=== PATIENT | female | born 1950 | race Caucasian/White ===

== ENCOUNTER 2017-10-08 06:22 | Day surgery (SDC) | payer MEDICARE, SELFPAY ==
[2017-10-01 12:45] VITALS: BP 162/90; PULSE 80; RESP 16; TEMP 36.4; O2SAT 96; BMI 31.7
--- NOTE | 2017-10-01 13:29 | SDCEKG_ITS ---
Test Reason : Blood Pressure : / mmHG Vent. Rate : 081 BPM Atrial Rate : 081 BPM P-R Int : 150 ms QRS Dur : 080 ms QT Int : 430 ms P-R-T Axes : 059 -04 032 degrees QTc Int : 499 ms Normal sinus rhythm Prolonged QT Abnormal ECG Confirmed by ALEXIA AGRAWAL, ALLIE ([id number]), acquisition editor CHRISTIN HWANG ([id number]) on 10/06/2017 3:19:59 PM Referred By: Maryam Avila Confirmed By:ALLIE HALE MD
[2017-10-08] VITALS (9 sets, daily range): BP systolic 122–150; BP diastolic 65–78; PULSE 72–92; RESP 16–18; TEMP 36–36.6; O2SAT 91–98; BMI 31.4
[2017-10-08] MEDS: Cefazolin 2 GM in 0.9% Normal Saline 100 ML IV (08:08)
[2017-10-08] MEDS: Bupivacaine Mpf 0.5% 30 ML VIAL (09:07)
--- NOTE | 2017-10-08 09:53 | PCM.DC.VHY ---
Discharge Activity: Return to Normal Activity May shower in (days): 1 May resume sexual activity in: 6 weeks Call your doctor if your incision/area has: Continuous Slow Oozing, Sudden Increased Bleeding, Increased Pain/ Swelling, Increased Redness, Foul Smelling Discharge Call your doctor if you observe: Fever of 101 or Higher, Inability to urinate, Inability to have a bowel movement, Using more than one pad per hour Allergies/Adverse Reactions: Allergies NSAIDS (Non-Steroidal Anti-Inflamma Adverse Reaction (Verified 10/01/17 12:51) Upset Stomach phenazopyridine HCl [From Pyridium] Adverse Reaction (Verified 10/01/17 12:51) Other MIGRAINES Medications to take at Discharge Estradiol [Estrace] 1 mg PO DAILY 08/23/14 Pseudoephedrine [Sudafed] 60 mg PO Q6H PRN PRN 08/23/14 Amlodipine Besylate [Norvasc] 10 mg PO DAILY 07/06/16 Fluoxetine [Prozac] 40 mg PO DAILY 07/06/16 Albuterol IH (ProAir) [Proair Hfa (SP)Vent Pts] 1 - 2 puff INHALATION Q4H PRN PRN 10/01/17 Cholecalciferol (Vitamin D3) [Vitamin D3] 2,000 unit PO DAILY 10/01/17 Esomeprazole Magnesium [Nexium 24Hr] 20 mg PO DAILY 10/01/17 Fexofenadine/Pseudoephedrine [Leonor-D 24 Hour Tablet] 180 mg PO DAILY 10/01/17 Krill/Om-3/Dha/Epa/Phospho/Ast [Krill Oil 1,000 mg Softgel] 1,000 mg PO DAILY 10/01/17 Primary Care Physician: Bell Carrasco MD [Primary Care Provider] - Please Follow Up With: Maryam Avila MD When: 6 weeks
--- NOTE | 2017-10-08 09:55 | PCM.OPRPT ---
Problem List (1) Cystocele with rectocele Status: Acute (2) Female stress incontinence Status: Acute Report of Operation Date of Procedure: 10/08/17 Pre-Operative Diagnosis: anterior vaginal wall prolapse, posterior vaginal wall prolapse, female stress incontinence Post-Operative Diagnosis: same Surgery/Procedure Performed:: Anterior and posterior colporrhaphy, midurethral sling and cystoscopy comptroller: Melania Magdaleno Type of Anesthesia:: General Special Medications: .5% marcaine Specimen's removed: None Drains: Bales to PACU Estimated Blood Loss (mL): 25 mL Description of Procedure: The patient was taken to the operating room where general anesthesia was initiated. The patient was placed in dorsal lithotomy position and prepped and draped in sterile fashion. A surgical timeout occurred. A bales catheter was placed in the patient's bladder. The vaginal epithelium overlying the anterior vaginal wall was grasped with two Allis clamps, injected with 0.25% Marcaine with epinephrine and a midline incision was made over the herniation of the anterior vaginal wall. The underlying pubocervical fascia was dissected off the overlying vaginal epithelium until the herniation of the pubocervical fascia was completely exposed. Hemostasis was achieved with electrosurgical cautery. The herniation was repaired in the traditional fashion using imbricating horizontal mattress sutures of 2-O PDS on a CT-1 needle. Once the hernation was completely repaired, the redundant vaginal epithelium was excised and the incision was closed with a running, locking 3-O vicryl suture. Excellent hemostasis was noted. The patient was taken to the operating room where general anesthesia was initiated. The patient was placed in dorsal lithotomy position and prepped and draped in sterile fashion. A surgical timeout occurred. Bales catheter was placed in the patient's bladder. The vaginal epithelium overlying the mid-urethra was grasped with two Allis clamps, injected with 0.25% Marcaine with epinephrine and a 1.5 cm midline incision was made over the mid urethra using a 15 blade scalpel. Tunnels were dissected bilaterally to the pubic rami and the Kenneth Desera trocars were passed through the tunnels on the right side, through the space of Retzius and out the skin at at the pubic symphysis. This was repeated on the patient's left side. Cystoscopy was performed and there was no evidence of bladder or urethral injury. The sling was then drawn up through the space of Retzius and out the skin at the pubic symphysis. Tension was adjusted by placing a Wangensteen forceps between the sling and the urethra. Once adequate tension was adjusted, the plastic sheaths were removed. The redundant sling was trimmed at the skin edges and the skin was repaired with Indermil. The vaginal epithelium was repaired with a running 3-0 Vicryl suture. Anesthesia was discontinued. All needle, instrument, and sponge counts were correct x 2. The patient was taken to recovery room in stable condition. A self-retaining retractor was used to retract the labia and vagina for adequate visualization and exposure. The vaginal epithelium overlying the posterior vaginal wall was grasped with two Allis clamps, injected with 0.25% Marcaine with epinephrine and a midline incision was made over the herniation of the posterior vaginal wall. The underlying rectovaginal fascia was dissected off the overlying vaginal epithelium until the herniation of the rectovaginal fascia was completely exposed. Hemostasis was achieved with electrosurgical cautery. With placement of a rectal finger, the herniation was repaired in the traditional fashion using imbricating horizontal mattress sutures of 2-O PDS on a CT-1 needle. Once the hernation was completely repaired, the redundant vaginal epithelium was excised and the incision was closed with a running, locking 3-O vicryl suture. Excellent hemostasis was noted. The vagina was packed with Kerlex gauze soaked in estrogen cream. Anesthesia was discontinued. All needle, instrument, and sponge counts were correct x 2. The patient was taken to recovery room in stable condition draining clear urine from her bales catheter. Grafts/Implants Used: Kenneth Desera sling - Complications None - Admit VTE Documentation VTE Present on Admission: Yes VTE Mechan Device Prophylaxis: SCD's VTE Pharm Prophylaxis ordered?: No Reason prophylaxis not ordered:: Treatment Not Indicated
--- NOTE | 2017-10-08 10:00 | OP.PCM_ITS ---
Problem List (1) Cystocele with rectocele Status: Acute (2) Female stress incontinence Status: Acute Report of Operation Date of Procedure: 10/08/17 Pre-Operative Diagnosis: anterior vaginal wall prolapse, posterior vaginal wall prolapse, female stress incontinence Post-Operative Diagnosis: same Surgery/Procedure Performed:: Anterior and posterior colporrhaphy, midurethral sling and cystoscopy nursing manager: Melania Magdaleno Type of Anesthesia:: General Special Medications: .5% marcaine Specimen's removed: None Drains: Bales to PACU Estimated Blood Loss (mL): 25 mL Description of Procedure: The patient was taken to the operating room where general anesthesia was initiated. The patient was placed in dorsal lithotomy position and prepped and draped in sterile fashion. A surgical timeout occurred. A bales catheter was placed in the patient's bladder. The vaginal epithelium overlying the anterior vaginal wall was grasped with two Allis clamps, injected with 0.25% Marcaine with epinephrine and a midline incision was made over the herniation of the anterior vaginal wall. The underlying pubocervical fascia was dissected off the overlying vaginal epithelium until the herniation of the pubocervical fascia was completely exposed. Hemostasis was achieved with electrosurgical cautery. The herniation was repaired in the traditional fashion using imbricating horizontal mattress sutures of 2-O PDS on a CT-1 needle. Once the hernation was completely repaired , the redundant vaginal epithelium was excised and the incision was closed with a running, locking 3-O vicryl suture. Excellent hemostasis was noted. The patient was taken to the operating room where general anesthesia was initiated. The patient was placed in dorsal lithotomy position and prepped and draped in sterile fashion. A surgical timeout occurred. Bales catheter was placed in the patient's bladder. The vaginal epithelium overlying the mid- urethra was grasped with two Allis clamps, injected with 0.25% Marcaine with epinephrine and a 1.5 cm midline incision was made over the mid urethra using a 15 blade scalpel. Tunnels were dissected bilaterally to the pubic rami and the Kenneth Desera trocars were passed through the tunnels on the right side, through the space of Retzius and out the skin at at the pubic symphysis. This was repeated on the patient's left side. Cystoscopy was performed and there was no evidence of bladder or urethral injury. The sling was then drawn up through the space of Retzius and out the skin at the pubic symphysis. Tension was adjusted by placing a Wangensteen forceps between the sling and the urethra. Once adequate tension was adjusted, the plastic sheaths were removed. The redundant sling was trimmed at the skin edges and the skin was repaired with Indermil. The vaginal epithelium was repaired with a running 3-0 Vicryl suture. Anesthesia was discontinued. All needle, instrument, and sponge counts were correct x 2. The patient was taken to recovery room in stable condition. A self-retaining retractor was used to retract the labia and vagina for adequate visualization and exposure. The vaginal epithelium overlying the posterior vaginal wall was grasped with two Allis clamps, injected with 0.25% Marcaine with epinephrine and a midline incision was made over the herniation of the posterior vaginal wall. The underlying rectovaginal fascia was dissected off the overlying vaginal epithelium until the herniation of the rectovaginal fascia was completely exposed. Hemostasis was achieved with electrosurgical cautery. With placement of a rectal finger, the herniation was repaired in the traditional fashion using imbricating horizontal mattress sutures of 2-O PDS on a CT-1 needle. Once the hernation was completely repaired , the redundant vaginal epithelium was excised and the incision was closed with a running, locking 3-O vicryl suture. Excellent hemostasis was noted. The vagina was packed with Kerlex gauze soaked in estrogen cream. Anesthesia was discontinued. All needle, instrument, and sponge counts were correct x 2. The patient was taken to recovery room in stable condition draining clear urine from her bales catheter. Grafts/Implants Used: Kenneth Desera sling - Complications None - Admit VTE Documentation VTE Present on Admission: Yes VTE Mechan Device Prophylaxis: SCD's VTE Pharm Prophylaxis ordered?: No Reason prophylaxis not ordered:: Treatment Not Indicated
[2017-10-08] MEDS: Acetaminophen 500 MG Tablet 1000 MG PO (11:34)
[2017-10-08] MEDS: oxyCODONE 5 MG Tablet PO (11:35)
--- NOTE | 2017-10-08 12:51 | SUR.PHASEII ---
Addendum entered by Alberta Guthrie 10/08/17 13:46: bales cath inserted without difficulty- emptied 500cc- pt aware to see dr wright and call office to make appointment Original Note: 1240 PT UP TO BATHROOM AFTER 250ML NS INSTILLED INTO BLADDER VIA CATHETER. CATHETER THEN DC'D. PT UNABLE TO VOID. WILL ATTEMPT AGAIN IN 30 MIN.
== END 2017-10-08 14:15 | disposition home or self-care (01) ==
LOC: SDC 06:22 → AC 06:23
PROVIDERS: Family Provider Internal Medicine; PCP Internal Medicine; Visit Provider Obstetrics & Gynecology
PROC: (CPT 57260; principal; 2017-10-08 07:45)
DX: N81.10 Cystocele, unspecified (principal); N81.6 Rectocele; N39.3 Stress incontinence (female) (male); I10 Essential (primary) hypertension; M19.90 Unspecified osteoarthritis, unspecified site; J45.909 Unspecified asthma, uncomplicated; K21.9 Gastro-esophageal reflux disease without esophagitis; F32.9 Major depressive disorder, single episode, unspecified; Z72.89 Other problems related to lifestyle; Z79.899 Other long term (current) drug therapy
CPT/HCPCS: 51992; 57260; 93005; J7120; C1771; J2405

== ENCOUNTER → 2017-10-22 12:16 | Outpatient (CLI) | payer MEDICARE, SELFPAY ==
--- NOTE | 2017-10-21 | BRBX_PTH ---
PATIENT: SAMMY KNAPP LOC: [facility] U#:[id number] AGE/SX: 75/F ROOM: RE10/22/[address]: Dr. Tylor Soares MD : 1950 BED: DIS: SPEC #: [id number] RECD: 10/22/17 12:04 STATUS: SHELDON GARAYHanane #: [id number] KARAN: 10/21/17 00:[address]: Tylor Soares DEPT: SURGICAL PATHOLOGY RECD BY: Tylor Dan ENTERED: 10/22/17 13:47 SP TYPE: BREAST BX OTHR DR: Dr. Bell Carrasco MD Tissues: Right breast, NOS Procedures: Surgery Specimen Level IV HEADER OPERATION: Ultrasound-guided right breast biopsy PRE-OP DIAGNOSIS: Abnormal mammogram TISSUE SUBMITTED: Right breast biopsy MICROSCOPIC DIAGNOSIS Right breast, ultrasound-guided core biopsy: Fibrocystic changes and intraductal hyperplasia without atypia. Negative for malignancy. See comment. SJ:abhay 10/25/17 COMMENT Correlation with clinical, radiologic findings and appropriate follow up are necessary. MICROSCOPIC DESCRIPTION Slides are reviewed. GROSS DESCRIPTION Received in fixative is one container labeled with the patient's name and designated right breast. The specimen consists of two elongated fragments of white-yellow soft tissue. Each core has an average length of 1 cm and a maximal diameter of 0.1 cm. The specimen is totally submitted in one cassette. / AM:abhay 10/22/17 TC:5 CPT: 41806
--- NOTE | 2017-10-21 | ASPS_PTH ---
PATIENT: SAMMY KNAPP LOC: [facility] U#:[id number] AGE/SX: 75/F ROOM: RE10/22/[address]: Dr. Tylor Soares MD : 1950 BED: DIS: SPEC #: [id number] RECD: 10/22/17 12:04 STATUS: SHELDON NANNETTE #: [id number] KARAN: 10/21/17 00:[address]: Tylor Soares DEPT: CYTOLOGY RECD BY: Tylor Dan ENTERED: 10/22/17 13:47 SP TYPE: ASPIRATION OTHR DR: Dr. Bell Carrasco MD Tissues: Right breast, NOS Procedures: Pap Stain (control) Special Stain Group II Cytology Other HEADER OPERATION: Ultrasound-guided right breast biopsy PRE-OP DIAGNOSIS: Abnormal mammogram TISSUE SUBMITTED: Right breast aspiration (2 slides) DIAGNOSIS CYTOLOGY Right breast, ultrasound-guided FNA (smears): Negative for malignant cells. SJ:abhay 10/25/17 COMMENT Correlation with clinical, radiologic findings and appropriate follow up are necessary. Case has been reviewed in consultation with Dr. Stovall who concurs with the above diagnosis. IDC:AM CYTOLOGY STUDY Slides are reviewed. The specimen is paucicellular and consists of a few clusters of benign ductal cells. CYTOLOGY GROSS Received are two smears labeled with the patient's name and designated per the requisition as right breast. Submitted for staining. 10/22/17 TC:5 CPT: 08923
== END ==
PROVIDERS: Family Provider Internal Medicine; PCP Internal Medicine; Visit Provider Surgery
DX: R92.8 Other abnormal and inconclusive findings on diagnostic imaging of breast (principal)
CPT/HCPCS: 88161; 88305; 88313

== ENCOUNTER → 2017-11-15 10:30 | Outpatient (CLI) | payer MEDICARE, SELFPAY ==
--- NOTE | 2017-11-15 11:30 | BRBX_PTH ---
PATIENT: SAMMY KNAPP LOC: [facility] U#:[id number] AGE/SX: 75/F ROOM: RE11/15/[address]: Dr. Tylor Soares MD : 1950 BED: DIS: SPEC #: [id number] RECD: 11/15/17 12:11 STATUS: SHELDON NANNETTE #: [id number] KARAN: 11/15/17 11:[address]: Tylor Soares DEPT: SURGICAL PATHOLOGY RECD BY: Tylor Dan ENTERED: 11/15/17 12:23 SP TYPE: BREAST BX OTHR DR: Dr. Bell Carrasco MD Tissues: Right breast, NOS Procedures: Surgery Specimen Level IV HEADER OPERATION: Right breast stereotactic needle core biopsy PRE-OP DIAGNOSIS: Microcalcifications TISSUE SUBMITTED: Right breast FIXATION TIME: 8 hours MICROSCOPIC DIAGNOSIS Right breast, microcalcifications, stereotactic needle core biopsy: Fibrocystic changes, adenosis and intraductal hyperplasia with atypia. Focal microcalcifications. Negative for malignancy. DARIO:abhay 11/16/17 COMMENT Correlation with clinical, radiologic findings and appropriate follow up are necessary. Please make reference to previous specimen ([id number]) right breast, ultrasound-guided core biopsy with diagnosis of fibrocystic changes and intraductal hyperplasia without atypia. Case has been reviewed in consultation with Dr. Stovall who concurs with the above diagnosis. IDC:AM MICROSCOPIC DESCRIPTION Slides are reviewed. GROSS DESCRIPTION Received in fixative is one container labeled with the patient's name and designated right breast. The specimen consists of multiple elongated fragments of love-yellow fibroadipose tissue that in aggregate measure 6 x 3 x 0.3 cm. The entire specimen is submitted in three cassettes. / DARIO:abhay 11/15/17 TC:5 CPT: 37088
--- NOTE | 2017-11-15 11:56 | OP.PCM_ITS ---
Report of Operation Date of Procedure: 11/15/17 Pre-Operative Diagnosis: right breast microcalcifications Post-Operative Diagnosis: right breast microcalcifications - successful stereotactic biopsy Surgery/Procedure Performed:: right stereotactic vaccuum assisted core needle biopsy, specimen radiograph, gel marker placement Specimen's removed: right breast tissue Description of Procedure: The patient was brought to the stereotactic suite and informed of the plan course of events. The right breast was positioned in the CC approach on the Flores stereotactic table. Mammographic image demonstrated the area of abnormality to be located in the center of the radiograph. Stereotactic images were then obtained which demonstrated good positioning of the abnormality for biopsy with good stroke marie parameters. The breast was cleaned with Betadine area did one percent lidocaine was used to anesthetize the skin and a small stab incision made. An 8-gauge mammotome needle was placed into the pre-fire position. Stereotactic images demonstrated good positioning around the planned biopsy site. Local anesthetic injected deeply in the breast. The needle was deployed. Post deployment images demonstrated good positioning of the planned biopsy site. Multiple vacuum-assisted samples were obtained and around-the- clock fashion. Specimen radiograph demonstrated micro-calcifications in the sample. A gel marker clip was deployed. Post biopsy images demonstrated good position of the clip relative the biopsy cavity. The breast was removed from compression. Steri-Strips and a dressing applied. Post procedure mammogram images were obtained.
== END ==
PROVIDERS: Family Provider Internal Medicine; PCP Internal Medicine; Visit Provider Surgery
DX: N60.91 Unspecified benign mammary dysplasia of right breast (principal); R92.1 Mammographic calcification found on diagnostic imaging of breast; I10 Essential (primary) hypertension; F32.9 Major depressive disorder, single episode, unspecified; J45.909 Unspecified asthma, uncomplicated; M19.90 Unspecified osteoarthritis, unspecified site; Z79.899 Other long term (current) drug therapy
CPT/HCPCS: 19081; 88305; J7050; A4648

== ENCOUNTER 2017-12-27 09:29 | Day surgery (SDC) | payer MEDICARE, SELFPAY ==
[2017-12-27 09:47] VITALS: BP 152/77; PULSE 73; RESP 16; TEMP 36.6; O2SAT 96; BMI 31.9
--- NOTE | 2017-12-27 10:46 | BI_ITS ---
SURGICAL BREAST SPECIMEN RADIOGRAPH CLINICAL: Document presence of tissue clip marker in biopsy specimen. FINDINGS: Specimen shows presence of tissue clip marker. Electronically Signed: Sandro Hayes MD at 15:25 EDT Tel [phone], Service support , BI/Breast Biopsy Specimen
--- NOTE | 2017-12-27 11:05 | BRBX_PTH ---
PATIENT: SAMMY KNAPP LOC: [facility] [place] U#:[id number] AGE/SX: 67/F ROOM: RE12/27/[address]: Dr. Tylor Soares MD : 1950 BED: DIS: 12/27/2017 SPEC #: [id number] RECD: 12/27/17 15:01 STATUS: SHELDON NANNETTE #: [id number] KARAN: 12/27/17 11:[address]: Tylor Soares DEPT: SURGICAL PATHOLOGY RECD BY: Nicole Schulte ENTERED: 12/28/17 10:51 SP TYPE: BREAST BX OTHR DR: Dr. Bell Carrasco MD Tissues: Right breast, NOS Procedures: Surgery Specimen Level V HEADER OPERATION: Right breast lumpectomy, stereotactic needle localization PRE-OP DIAGNOSIS: Atypical ductal hyperplasia right breast TISSUE SUBMITTED: Right breast lumpectomy, needle localization, wire ? cranial, single suture ? superficial, double suture - medial MICROSCOPIC DIAGNOSIS Right breast, needle localization lumpectomy: Fibrocystic changes, adenosis and intraductal hyperplasia with focal atypia. Negative for malignancy. Focal microcalcifications. SJ:abhay 12/30/17 COMMENT Please make reference to previous specimen ([id number]) right breast, microcalcifications with diagnosis of fibrocystic changes, adenosis and intraductal hyperplasia with atypia. MICROSCOPIC DESCRIPTION Slides are reviewed. GROSS DESCRIPTION Received fresh for intraoperative consultation labeled with the patient's name is a specimen designated right breast. The specimen consists of a piece of fibroadipose tissue with needle localization measuring 8 x 7 x 3.5 cm. A piece of skin is noted superiorly and measures 2.2 x 1 cm. The specimen is oriented as follows: wire - cranial, single suture ? superficial and double suture ? medial. The specimen is inked as follows: anterior ? yellow, posterior ? black, superior ? blue, inferior ? green, medial ? red and lateral ? orange. Serial sections reveal a biopsy cavity with an indurated area. The biopsy cavity measures 1 cm in greatest dimension and the indurated area including biopsy cavity measures 2.5 x 1 x 1 cm. Sections of the rest of the specimen reveal love-yellow adipose cut surfaces mixed with fibrous area. The specimen gross is reviewed along with the surgeon, Dr. Soares, in person. The biopsy cavity is 0.6 cm away from the closest posterior margin. Clean In Places Operator sections are submitted in 12 cassettes as follows: 1 ? perpendicular medial and lateral margins, 2 ? perpendicular inferior margin and skin adjacent superior margin, 3 ? perpendicular anterior and posterior margins, 4-9 ? biopsy cavity with surrounding indurated area, 1012 ? medical sales representative sections away from the biopsy cavity. Sections will be submitted after additional fixation. / SJ:abhay 12/28/17 TC:5 CPT: 83335, 82156
[2017-12-27] MEDS: Cefazolin 2 GM in 0.9% Normal Saline 100 ML IV (14:15)
[2017-12-27] MEDS: Bupivacaine Mpf 0.5% 30 ML VIAL (14:35)
--- NOTE | 2017-12-27 15:17 | PCM.DCBBX ---
Discharge Diet: No Restrictions Discharge Activity: Return to Normal Activity May shower in (days): 3 Remove Dressing in (days):: 3 - Leave Dermabond in place. Allergies/Adverse Reactions: Allergies cyclobenzaprine [From Flexeril] Adverse Reaction (Verified 12/24/17 09:02) Other EYE MUSCLE PAIN NSAIDS (Non-Steroidal Anti-Inflamma Adverse Reaction (Verified 12/24/17 09:01) Upset Stomach phenazopyridine HCl [From Pyridium] Adverse Reaction (Verified 12/24/17 09:01) Other MIGRAINES Medications to take at Discharge RX: Estradiol [Estrace] 1 mg PO DAILY 08/23/14 RX: Pseudoephedrine [Sudafed] 60 mg PO Q6H PRN PRN 08/23/14 RX: Amlodipine Besylate [Norvasc] 10 mg PO DAILY 07/06/16 RX: Fluoxetine [Prozac] 40 mg PO DAILY 07/06/16 RX: Albuterol IH (ProAir) [Proair Hfa] 1 - 2 puff INHALATION Q4H PRN PRN 10/01/17 RX: Cholecalciferol (Vitamin D3) [Vitamin D3] 2,000 unit PO DAILY 10/01/17 RX: Esomeprazole Magnesium [Nexium 24Hr] 20 mg PO DAILY 10/01/17 RX: Krill/Om-3/Dha/Epa/Phospho/Ast [Krill Oil 1,000 mg Softgel] 1,000 mg PO DAILY 10/01/17 RX: Fexofenadine HCl [Leonor Allergy] 180 mg PO DAILY 12/24/17 Oxycodone HCl/Acetaminophen [Percocet 5/325] 1 tab PO Q6H PRN PRN 7 Days #10 tab 12/27/17 The following prescriptions were given: Oxycodone HCl/Acetaminophen [Percocet 5/325] 1 tab PO Q6H PRN PRN 7 Days #10 tab PRN Reason: Pain Primary Care Physician: Bell Carrasco MD [Primary Care Provider] - Test Results: Test results from this visit will be discussed in further detail at your follow-up appointment, if applicable. Please Follow Up With: Tylor Soares MD - [phone] When: Please call for an appointment to be seen in one week.
--- NOTE | 2017-12-27 15:20 | OP.PCM_ITS ---
Report of Operation Date of Procedure: 12/27/17 Pre-Operative Diagnosis: right breast atypical ductal hyperplasia Post-Operative Diagnosis: right breast atypical ductal hyperplasia - successful needle loc biopsy Surgery/Procedure Performed:: right stereotactic guided needle localization lumpectomy. Description of Surgical Findings:: closest posterior margin - 6mm Type of Anesthesia:: General Anesthesiologist: Ravi Esteves - ASA2 Specimen's removed: right breast mass Drains: none Estimated Blood Loss (mL): <10 Fluids Replaced: 800 Description of Procedure: The patient was brought to the stereotactic suite. Her right breast was positioned in the CC approach in the [place] stereotactic table. Mammogram image demonstrated the clip to be nicely centered. Stereotactic images were obtained. Planned placement of the wire was marked and an additional 15 mm of depth added to the prescribed depth. The breast was then cleaned with Betadine. Local anesthetic was injected in the breast and a 15 Kopan's wire was inserted to the prescribed depth. Stereotactic images demonstrated good positioning of the wire. The wire was deployed as an needle was withdrawn. Stereotactic images demonstrated good positioning of the wire. The breast was marked compression the wire cut to length and taped. CC and MLO views were then obtained. The patient was then brought to the operative suite. Sign was performed verifying patient, site, position, SCIP antibiotic prophylaxis-2 g of Ancef and DVT prophylaxis with SCDs. Following an LMA anesthesia, 10 cc of a 50-50 mixture of lymph is here and normal saline was injected and sapeys plexus and the breast massaged. Ultrasound was then used to evaluate the abnormality and the limits of the mass and planned resection were marked on the skin using ultrasound guidance. Following this, the patient?s right breast, the patient?s right/left breast was then prepped and draped in the usual fashion. Timeout was performed verifying patient, site, position. The wire entered the breast at the cc position. An elliptical incision was made and dissection carried down to subcutaneous breast tissue and then flared out such that a good margin would be obtained in all axes. When the specimen was removed. The wire came from the cranial site. A solitary suture was placed at the superficial cranial site j. A double tail suture was placed along the medial aspect of the specimen. The specimen was oriented on a radiographic plate and sent for specimen radiograph. While we?re awaiting specimen radiograph, the cavity was irrigated with sterile water and aspirated. There was noted to be good hemostasis. 4 medium clips were placed at the deep cavity margins and 4 small clips at the superficial cavity margins oriented the cavity for future radiation treatment. Subcutaneous breast tissue closed with interrupted 3-0 Vicryl suture. Skin was closed with a running 4-0 Biosyn subcuticular suture. Specimen radiograph demonstrated good position of the clip relative to the biopsy site. The specimen was then brought to the pathology department. I oriented the specimen with the pathologist. Gross margins were examined and felt to be at least 6mm. Given this, Dermabond was applied to the skin the patient was awakened and brought to recovery in stable condition. - Admit VTE Documentation VTE Present on Admission: No VTE Mechan Device Prophylaxis: SCD's
[2017-12-27 15:25] VITALS: BP 148/82; BP 152/77; PULSE 93; RESP 18; TEMP 36.4; O2SAT 93
[2017-12-27 15:30] VITALS: BP 151/83; BP 152/77; PULSE 86; RESP 18; O2SAT 92
[2017-12-27 15:45] VITALS: BP 147/92; BP 152/77; PULSE 82; RESP 18; TEMP 36.5; O2SAT 96
[2017-12-27 16:21] VITALS: BP 152/77
== END 2017-12-27 16:37 | disposition home or self-care (01) ==
LOC: SDC 09:30 → AC 09:35
PROVIDERS: Family Provider Internal Medicine; PCP Internal Medicine; Visit Provider Surgery
PROC: (CPT 19120; principal; 2017-12-27 10:50)
DX: N60.91 Unspecified benign mammary dysplasia of right breast (principal); N60.21 Fibroadenosis of right breast; I10 Essential (primary) hypertension; F32.9 Major depressive disorder, single episode, unspecified; J45.909 Unspecified asthma, uncomplicated; M19.90 Unspecified osteoarthritis, unspecified site; K21.9 Gastro-esophageal reflux disease without esophagitis; Z79.899 Other long term (current) drug therapy
CPT/HCPCS: 00400; 19301; 19281; 76098; 88305; 88307; J7120; J2405

== ENCOUNTER 2019-02-09 08:49 | Emergency (ER) | payer MEDICARE, SELFPAY ==
[2019-02-09 08:50] VITALS: BP 164/88; PULSE 89; RESP 16; TEMP 36.2; O2SAT 97; BMI 31.6
--- NOTE | 2019-02-09 09:04 | CT_ITS ---
STUDY: CT BRAIN WITHOUT CONTRAST REASON FOR EXAM: Female, 68 years old. Headaches. Right shoulder stiffness. RADIATION DOSAGE (If Supplied By Facility): CTDIvol = ( 44.99 ) mGy, DLP = ( 812.98 ) mGycm TECHNIQUE: Transaxial CT imaging of the brain was performed without administration of intravenous contrast material. Individualized dose optimization techniques were used for this CT. COMPARISON: No relevant priors. FINDINGS: Normal soft tissue structures. Normal calvarium. There is prominence of the CSF spaces along the anterior aspect of the frontal lobes bilaterally. Normal white matter tracts of the cerebral hemispheres. Normal basal ganglia and thalami. Normal brainstem. Normal cerebellum. There is no intracranial hemorrhage. There are no findings of an acute ischemic infarction. Partial opacification of the maxillary sinuses bilaterally. CT/Brain/Head without Contrast IMPRESSION: Prominence of the CSF spaces along the anterior aspect of the frontal lobes bilaterally. Bilateral maxillary sinusitis. Electronically Signed: Sandro Hayes, at 10:10 EDT , Service support ,
--- NOTE | 2019-02-09 09:05 | CT_ITS ---
STUDY: CT CERVICAL SPINE WITHOUT CONTRAST REASON FOR EXAM: Female, 68 years old. Headaches. Right shoulder stiffness. RADIATION DOSAGE (If Supplied By Facility): CTDIvol = ( 21.80 ) mGy, DLP = ( 439.68 ) mGycm TECHNIQUE: High resolution transaxial imaging was performed without contrast material. Sagittal and coronal images were reconstructed. Individualized dose optimization techniques were used for this CT. COMPARISON: None FINDINGS: Normal craniovertebral junction. Normal anterior atlantoaxial articulation. Normal odontoid process. There is straightening of the normal cervical lordosis. Normal vertebral bodies and posterior osseous elements. C2-3: Normal endplates. Normal disc height and morphology. Normal central canal and intervertebral neuroforamina. C3-4: Normal endplates. Normal disc height and morphology. Normal central canal and intervertebral neuroforamina. C4-5: Normal endplates. Normal disc height and morphology. Normal central canal and intervertebral neuroforamina. C5-6: Normal endplates. Normal disc height and morphology. Normal central canal and intervertebral neuroforamina. C6-7: Normal endplates. Normal disc height and morphology. Normal central canal and intervertebral neuroforamina. C7-T1: Normal endplates. Normal disc height and morphology. Normal central canal and intervertebral neuroforamina. Normal visualized soft tissue structures. CT/Spine Cervical without Contras IMPRESSION: Normal unenhanced CT examination of the cervical spine. Electronically Signed: Sandro Hayes, at 10:10 EDT , Service support ,
--- NOTE | 2019-02-09 09:09 | ED.DCSUM_ITS ---
History of Present Illness Chief Complaint: Headache Informant: Patient Onset: Yesterday Context: Gradual Onset Timing: Continuous Current Severity: Severe Maximum Severity: Severe Worsened by: Head movement Relieved by: Nothing Narrative: Patient is a 68-year-old female presenting with right-sided neck pain and associ ated headache. Patient states she woke up yesterday with a crick in her neck. The neck pain worsened throughout the day. Patient has not taken any medications for the pain. She notes the pain is worse when she tries to move her head. Last night patient developed a headache that woke her from sleep. She states is in the back of her head. She has a history of migraines but states this feels different than her normal migraines. She denies any associated nausea or vomiting, weakness or altered sensation. She denies any change in her vision, fever or rash. She called her nurse on-call line which told her to come to the emergency room for further evaluation. Patient denies any falls or trauma. She denies any other complaints at this time. Past Medical History - Allergies and Home Meds Allergies/Adverse Reactions: Allergies cyclobenzaprine [From Flexeril] Adverse Reaction (Verified 02/09/19 08:50) Other EYE MUSCLE PAIN NSAIDS (Non-Steroidal Anti-Inflamma Adverse Reaction (Verified 02/09/19 08:50) Upset Stomach phenazopyridine HCl [From Pyridium] Adverse Reaction (Verified 02/09/19 08:50) Other MIGRAINES Primary Care Physician: Bell Carrasco MD [Primary Care Provider] - Past Medical History: - - Asthma, migraines, hypertension Surgical History: noncontributory Smoking Status: Never smoker Review of Systems All systems negative except as indicated Musculoskeletal: Reports: Neck pain - Right sided Neurological: Reports: Headache Physical Exam Vital Signs/Narrative: Vital Signs Temp Pulse Resp BP Pulse Ox 02/09/19 08:50 97.1 F L 89 16 164/88 H 97 Inital Vital Signs reviewed: Yes General: Well nourished, Well developed, No Acute Distress Head: Normocephalic, Atraumatic Eyes: Perrl, EOMI ENT: Moist mucous membranes, No rhinorrhea Neck: Supple, - - No midline tenderness, significant right paraspinal tenderness to palpation and muscle spasm appreciated, no nuchal rigidity Cardiovascular: Regular rate, Regular rhythm, No murmurs Respiratory: No distress, CTA bilaterally, Chest nontender Abdomen: Soft, Nontender, Nondistended Back: Nontender, Normal Inspection Extremities: Nontender, No edema Skin: Normal color, No rash Neurological: Alert, Oriented x3, Cranial nerves II-XII grossly intact, Normal Strength, Normal Sensation Psychological: Normal affect, Normal Mood Diagnostic/Tx/Re-eval Clinical Impression(s) from Imaging Studies Brain CT 02/09/19 09:04 IMPRESSION: Prominence of the CSF spaces along the anterior aspect of the frontal lobes bilaterally. Bilateral maxillary sinusitis. Electronically Signed: Sandro Abigail, at 10:10 EDT , Service support , Cervical Spine CT 02/09/19 09:05 IMPRESSION: Normal unenhanced CT examination of the cervical spine. Electronically Signed: Sandro Abigail, at 10:10 EDT , Service support , - Medical Decision Making Patient is evaluated for neck pain and headache. CT of the head and neck is obtained as patient headache woke her from sleep which is abnormal for her. She has normal neurologic exam. CT of the brain does show slightly enlarged ventricles which she was informed of she can follow-up outpatient with her PCP. I suspect she has a muscle spasm which is causing her symptoms at this time. She is treated with IV Toradol and p.o. Valium in the ER. She has significant improvement of her symptoms. She will be discharged home on a course of Valium. Patient does not have any meningeal signs. Patient is counseled on signs and symptoms requiring return to the emergency room. Patient verbalizes agreement and understand this plan. Patient discharged home in stable and improved condition. ED Disposition - Plan for ED Patient: Disposition: Home or Assisted Living Diagnosis: Muscle spasms of neck, Tension headache Instructions: HEADACHE, Tension, NECK SPASM, No Trauma Prescriptions: Diazepam [Valium] 5 mg PO TID PRN #15 tab PRN Reason: Muscle Spasm Prescription Printed Referrals: Bell Carrasco MD [Primary Care Provider] - Additional Instructions: Take Tylenol as needed for pain. Use heat to the area for pain. Return to emergency room if you have worsening symptoms. Follow-up with your primary care doctor.
[2019-02-09] MEDS: Ketorolac 15 MG/ML Vial IV (09:32)
[2019-02-09] MEDS: diazePAM 5 MG Tablet PO (09:39)
[2019-02-09 11:20] VITALS: BP 157/89; PULSE 71; RESP 16; O2SAT 97
== END 2019-02-09 12:10 | disposition home or self-care (01) ==
PROVIDERS: Emergency Provider Emergency Medicine; Family Provider Internal Medicine; PCP Internal Medicine
DX: G44.209 Tension-type headache, unspecified, not intractable (principal); M62.838 Other muscle spasm; I10 Essential (primary) hypertension; J45.909 Unspecified asthma, uncomplicated; Z79.899 Other long term (current) drug therapy
CPT/HCPCS: 70450; 72125; 96374; 99284; A4216

== ENCOUNTER → 2019-10-24 09:51 | Outpatient (CLI) | payer MEDICARE, SELFPAY | PROVIDERS: PCP Internal Medicine | DX: Z20.828 Contact with and (suspected) exposure to other viral communicable diseases (principal) | CPT/HCPCS: 87635; G2023; U0003 ==

== ENCOUNTER 2019-12-30 11:01 | Emergency (ER) | payer MEDICARE, SELFPAY ==
[2019-12-30 11:02] VITALS: BP 153/91; PULSE 79; RESP 16; TEMP 36.3; O2SAT 98; BMI 32.4
--- NOTE | 2019-12-30 11:09 | CT_ITS ---
STUDY: CT ABDOMEN AND PELVIS WITHOUT CONTRAST REASON FOR EXAM: Female, 69 years old. Epigastric pain with new diagnosis of diabetes. Prior tubal ligation and hysterectomy. RADIATION DOSAGE (If Supplied By Facility): CTDIvol = ( 10.97 ) mGy, DLP = ( 542.58 ) mGycm TECHNIQUE: Transaxial images were obtained from the dome of the diaphragm to the symphysis pubis without oral contrast, and without intravenous contrast. Sagittal and coronal images were reconstructed. Individualized dose optimization techniques were used for this CT. COMPARISON: None. FINDINGS: The visualized lung bases are unremarkable. The visualized portions of the heart are within normal limits. Normal liver. Normal gallbladder and extrahepatic biliary system. Normal spleen. Pancreas: Mild peripancreatic edema around the pancreatic head and extending to the body and tail of pancreas due to pancreatitis. Normal bilateral adrenal glands. Normal right kidney. Normal left kidney. Normal visualized stomach. Normal small intestine. Normal colon. The appendix is not visualized. Normal abdominal aorta. Normal inferior vena cava. Normal retroperitoneum. Normal urinary bladder. Postsurgical absence of the uterus. Normal abdominal wall. Pronounced disc space height narrowing with endplate sclerosis at L2-L3 and L5-S1 disc space levels. Moderately pronounced L3-L4 disc space height narrowing with degenerative vacuum phenomenon. No acute osseous abnormality. CT/Abdomen/Pelvis without Cont IMPRESSION: 1. Mild acute pancreatitis. 2. No other suspicious acute abnormality in the abdomen and pelvis. 3. Pronounced degenerative disc space height narrowing with endplate sclerosis at L2-L3 and L5-S1 disc space levels. 4. Mildly pronounced L3-L4 degenerative disc space height narrowing with degenerative vacuum phenomenon. Electronically Signed: Thanh Humphrey MD at 12:00 EDT , Service support ,
--- NOTE | 2019-12-30 11:18 | EKG12_ITS ---
Test Reason : Blood Pressure : / mmHG Vent. Rate : 076 BPM Atrial Rate : 076 BPM P-R Int : 154 ms QRS Dur : 080 ms QT Int : 428 ms P-R-T Axes : 070 -07 037 degrees QTc Int : 481 ms Normal sinus rhythm Low voltage QRS Borderline ECG Confirmed by RAMON AGRAWAL, ALBAN ([id number]), technical writer and editor ALEXANDR OWUSU ([id number]) on 01/03/2020 11:32:18 AM Referred By: DARIO Confirmed By:ALBAN NAVARRO MD
--- NOTE | 2019-12-30 11:19 | ED.DCSUM_ITS ---
History of Present Illness Chief Complaint: Abd Pain Informant: Patient Onset: Days Maximum Severity: Mild Narrative: Patient complains of a bilateral subcostal pain and epigastric discomfort for the last few days. The epigastric discomfort intensified today, she is had no fever no cough no nausea or vomiting normal bowel bladder habits able to eat and drink, newly diagnosed diabetic was started on metformin about a month ago and she believes the metformin is causing her to have stomach cramps. She spoke with her providers who over the phone today who could not see her instructed to come to the hospital. She indicates her blood sugars running about 200 range, her A1c is about 5-7, her bowel bladder habits again are normal no coronavirus exposures she takes her hand and the drip she draws it to the bilateral subcostal margins into the epigastric flank discomfort. She has no history of LA PE DVT she has no chest pain she was able to eat today despite the abdominal cramps Past Medical History - Allergies and Home Meds Allergies/Adverse Reactions: Allergies cyclobenzaprine [From Flexeril] Adverse Reaction (Verified 12/30/19 11:02) Other EYE MUSCLE PAIN NSAIDS (Non-Steroidal Anti-Inflamma Adverse Reaction (Verified 12/30/19 11:02) Upset Stomach phenazopyridine HCl [From Pyridium] Adverse Reaction (Verified 12/30/19 11:02) Other MIGRAINES Primary Care Physician: Bell Carrasco MD [Primary Care Provider] - Past Medical History: - - Gastritis and diabetes Surgical History: noncontributory Smoking Status: Never smoker Review of Systems General: Denies: Chills, Fever, Sweats Eyes: Denies: Visual changes - bilaterally, Diplopia ENT: Denies: Rhinorrhea, Sore throat Cardiovascular: Denies: Chest pain, Palpitations Respiratory: Denies: Dyspnea, Cough, Dyspnea on exertion Gastrointestinal: Reports: Abdominal pain. Denies: Nausea, Vomiting, Diarrhea, Melena, Hematochezia Genitourinary: Denies: Dysuria, Hematuria, Frequency Musculoskeletal: Denies: Back pain, Extremity Pain Skin: Denies: Rash, Wounds Neurological: Denies: Headache, Weakness, Numbness Physical Exam Vital Signs/Narrative: Vital Signs Temp Pulse Resp BP Pulse Ox 12/30/19 11:02 97.4 F L 79 16 153/91 H 98 General: Well nourished, Well developed, No Acute Distress Head: Normocephalic, Atraumatic Eyes: Perrl, EOMI ENT: Moist mucous membranes, No rhinorrhea Neck: Supple, Nontender Cardiovascular: Regular rate, Regular rhythm, No murmurs Respiratory: No distress, CTA bilaterally, Chest nontender Abdomen: Soft, Nontender, Nondistended, Normal bowel sounds Back: Nontender, Normal Inspection Extremities: Nontender, No edema Skin: Normal color, No rash Neurological: Alert, Oriented x3, Cranial nerves II-XII grossly intact, Normal Strength, Normal Sensation Psychological: Normal affect, Normal Mood Diagnostic/Tx/Re-eval - Medical Decision Making Patient's physical exam shows a subjective sense of discomfort in the epigastric area and subcostal areas, her BMI is about 33, she has no rebound guarding organomegaly she is eating and drinking bowel bladder habits been normal she is convinced all of the above is related to her metformin use I explained to her given all the above screening labs fluids management CT Patient's ED screening labs show an elevated lipase otherwise generally unremarkable see those reports the urine is pending, the CT abdomen pelvis shows signs of pancreatitis nothing acute see all those reports please On reevaluation she is resting comfortably in the bed remained stable no acute changes discussed all the above with her discussed admission for further management of all the above discussed complications from pancreatitis however she does not wish to be admitted she decayed she has pets in her home no one can care for them and she adamantly declines admission she will stay on a bland diet she will be discharged on Zofran a few [place] as a rescue medicine she will follow-up with outpatient providers and return for change in symptoms we will also hold her metformin and monitor her blood sugars and inform her outpatient providers of all the above understands the need for urgent outpatient management Did speak with the physicians on-call for Dr. Luna Bullard, who was made aware of all the above affect patient declined discharged and was asked to follow-up with the office Home stable declined admission Impression final acute pancreatitis ED Disposition - Plan for ED Patient: Diagnosis: Pancreatitis, acute Instructions: ED Pancreatitis Prescriptions: Hydrocodone Bitart/Apap 5-325 [[place] 5MG-325MG] 1 tab PO Q4H PRN PRN 2 Days #10 tab PRN Reason: Pain Prescription Printed Ondansetron [Zofran Odt] 4 mg PO Q8H PRN PRN #10 tab PRN Reason: Nausea Prescription Printed Referrals: Bell Carrasco MD [Primary Care Provider] -
[2019-12-30] MEDS: 0.9% Normal Saline 1,000 ML 125 ML IV (11:25)
[2019-12-30] MEDS: Ondansetron 4 MG/2 ML Vial IV (11:25)
[2019-12-30] MEDS: morphine 8 MG/ML Syringe IV (11:26)
[2019-12-30 11:34] LABS: Absolute Lymphocyte Count 1.89 X10^3/uL (0.83-4.51); Absolute Neutrophil Count 6.5 X10^3/uL (2.0-7.7); Basophil# 0.04 X10^3/uL; Basophil% 0.4 % (0-1); Eosinophils% 1.1 % (0-5); Hematocrit 38.4 % (37-47); Hemoglobin 12.9 g/dL (12.0-15.0); Lymphocyte # 1.89 X10^3/ul (4.0); Lymphocyte % 20.5 % (19-41); Mean Corp Hgb Conc 33.6 g/dL (32-36); Mean Corpuscular Hgb 31.3 pg (27.0-32.0); Mean Corpuscular Volume 93.2 fL (81-99); Mean Platelet Vol. 9.2 fl (6.2-12.0); Monocyte# 0.65 X10^3/uL; NRBC Flagged by Analyzer 0 % (0-5); Neutrophil # 6.51 X10^3/uL (2.7-7.7); Neutrophil % 70.7 % (47-70); Platelet Count 317 K/mm3 (150-450); RBC Distribution Width CV 13.9 % (11.6-14.6); RBC Distribution Width SD 47.8 fl (35.1-43.9); Red Blood Count 4.12 M/mm3 (4.2-5.4); White Blood Count 9.2 K/mm3 (4.4-11.0)
[2019-12-30 12:07] LABS: ALB/GLOB Ratio 0.9 RATIO (0.9-2.4); AST(SGOT) 15 U/L (15-37); Alanine Aminotransfer ALT/SGPT 29 U/L (13-56); Albumin, Serum 3.2 g/dL (3.2-5.0); Alkaline Phosphatase 71 U/L (45-117); Anion Gap 7 (5-15); BUN 14 mg/dL (7-18); BUN/Creat Ratio 20.8 RATIO (10-20); Calcium,Total 8.8 mg/dL (8.5-10.1); Chloride 105 mmol/L (98-107); Creatinine, Serum 0.67 mg/dL (0.55-1.02); EST Glomerular Filtration Rate 92 mL/min (>60); Est Glom Filt Rate - Afr Amer 112 mL/min (>60); Globulin 3.5 g/dL (2.2-4.2); Glucose 151 mg/dL (74-106); Lipase 4798 U/L (73-393); Potassium 3.8 mmol/L (3.5-5.1); Protein, Total 6.7 g/dL (6.4-8.2); Sodium Level 138 mmol/L (136-145)
[2019-12-30 12:12] LABS: Bacteria 0 SEEN /hpf (None Seen); Mucous, Urine 0 SEEN /hpf (<or=2+); Red Blood Cells-Urine 0 SEEN /hpf (0-5); White Blood Cells 0 SEEN /hpf (0-5)
[2019-12-30 12:28] LABS: Color, Urine Yellow (Yellow); Glucose, Dipstick Normal (Normal); Ketone-Dipstick Negative (Negative); Leukocyte Esterase-Dipstick Negative /ul (Negative); Nitrite-Dipstick Negative (Negative); Occult Blood-Urine Negative /ul (Negative); Protein-Dipstick Negative (Negative); Urine Bilirubin Dipstick Negative (Negative); Urine Clarity Clear (Clear); Urine Urobilinogen Normal (Normal)
[2019-12-30 12:51] LABS: Squamous Epithelial Cells - UA 0-5 SEEN /hpf (5-10)
[2019-12-30 13:04] VITALS: BP 145/85; PULSE 71; RESP 18; O2SAT 98
== END 2019-12-30 13:15 | disposition home or self-care (01) ==
LOC: ED 11:55
PROVIDERS: Emergency Provider Emergency Medicine; PCP Internal Medicine
DX: K85.90 Acute pancreatitis without necrosis or infection, unspecified (principal); E11.9 Type 2 diabetes mellitus without complications; Z79.899 Other long term (current) drug therapy; Z87.19 Personal history of other diseases of the digestive system
CPT/HCPCS: 74176; 80053; 81001; 83690; 84484; 85025; 93005; 96361; 96374; 96375; 99283; J7030; A4216; J2405

== ENCOUNTER 2020-06-17 09:37 | Outpatient (RCR) | payer MEDICARE, SELFPAY | END 2020-06-17 23:59 | LOC: IMMUN 09:37 | PROVIDERS: PCP Internal Medicine; Visit Provider Family Medicine | DX: Z23 Encounter for immunization (principal) | CPT/HCPCS: 0011A; 0012A ==

== ENCOUNTER 2021-01-29 14:16 | Emergency (ER) | payer MEDICARE, SELFPAY ==
[2021-01-29 14:19] VITALS: BP 193/110; PULSE 90; RESP 17; TEMP 37.1; O2SAT 95; BMI 33.7
--- NOTE | 2021-01-29 14:46 | CT_ITS ---
STUDY: CTA HEAD AND NECK WITH CONTRAST REASON FOR EXAM: Female, 70 years old. Vertigo RADIATION DOSAGE (If Supplied By Facility): CTDIvol = ( 30.69 ) mGy, DLP = ( 1515.97 ) mGycm TECHNIQUE: CT angiography was performed with a multi-detector CT scanner. Data acquisition was obtained from the skull base through the vertex following intravenous administration of IV 100mL Isovue-370. MIP images were reconstructed from the axial data set. Post-processing of the angiographic images was performed, with multiplanar reformation and 3D reconstruction. Individualized dose optimization techniques were used for this CT. COMPARISON: No relevant priors. FINDINGS: Normal bilateral petrous carotid arteries. Normal right cavernous carotid artery with a normal supraclinoid bifurcation. Normal left cavernous carotid artery with a normal supraclinoid bifurcation. Normal right A1 segments of the anterior cerebral artery. Normal left A1 segments of the anterior cerebral artery. Normal intact anterior communicating artery (ACOM). Normal bilateral A2 segments of the anterior cerebral arteries. Normal right M1 and M2 segments of the middle cerebral arteries, with a normal M1 bifurcation. Normal left M1 and M2 segments of the middle cerebral arteries, with a normal M1 bifurcation. There is a persistent origin of the right posterior cerebral artery with absence of the posterior communicating artery (PCOM). There is a persistent origin of the left posterior cerebral artery with absence of the posterior communicating artery (PCOM). Normal bilateral vertebral arteries. Normal basilar artery with a normal basilar bifurcation. The visualized bilateral superior cerebellar (SCA) arteries are normal. Normal bilateral P1, P2 and visualized P3 segments of the posterior cerebral arteries. There is no demonstrated aneurysm of the [place] of [place]. Mild degree of cerebral atrophy. Stable prominence of the CSF spaces overlying the anterior aspect of the frontal lobes bilaterally. This is unchanged as compared to prior study dated 02/09/2019. AORTIC ARCH: There is atherosclerotic calcific plaque formation of the aortic arch and great vessels arising from the aortic arch, without a hemodynamically significant stenosis. There is a normal origin of the brachiocephalic, left common carotid, and left subclavian arteries. RIGHT CAROTID ARTERIES: Normal right common carotid artery (CCA). Normal right common carotid bulb. Normal origin of the right internal carotid (ICA) artery without a hemodynamically significant stenosis. Normal visualized cervical portion of the right internal carotid artery. Normal origin of the right external carotid artery (ECA). LEFT CAROTID ARTERIES: Normal left common carotid artery (CCA). Normal left common carotid bulb. Normal origin of the left internal carotid (ICA) artery without a hemodynamically significant stenosis. Normal visualized cervical portion of the left internal carotid artery. Normal origin of the left external carotid artery (ECA). VERTEBRAL ARTERIES: There is enhancement within the bilateral vertebral arteries with a small right vertebral artery, and a dominant left vertebral artery. CT/CTA Head AND Neck W/ Contrast IMPRESSION: Cerebral atrophy. Small right vertebral artery. Electronically Signed: Sandro Hayes MD at 15:50 EDT , Service support ,
--- NOTE | 2021-01-29 14:47 | EKG12_ITS ---
Test Reason : DIZZINESS Blood Pressure : / mmHG Vent. Rate : 073 BPM Atrial Rate : 073 BPM P-R Int : 150 ms QRS Dur : 078 ms QT Int : 430 ms P-R-T Axes : 056 -09 035 degrees QTc Int : 473 ms Normal sinus rhythm with sinus arrhythmia Normal ECG Confirmed by RAMON AGRAWAL, ALBAN ([id number]), publishing editor ALEXANDR OWUSU ([id number]) on 02/04/2021 6:34:53 AM Referred By: Confirmed By:ALBAN NAVARRO MD
[2021-01-29 15:02] LABS: Absolute Neutrophil Count 2.8 X10^3/uL (2.0-7.7); Basophil# 0.05 X10^3/uL; Basophil% 0.9 % (0-1); Eosinophils% 1.8 % (0-5); Hematocrit 40.9 % (37-47); Lymphocyte % 37.4 % (19-41); Mean Corp Hgb Conc 34.2 g/dL (32-36); Mean Corpuscular Hgb 31.9 pg (27.0-32.0); Mean Corpuscular Volume 93.2 fL (81-99); Monocyte# 0.52 X10^3/uL; Monocyte% 9.3 % (0-10); NRBC Flagged by Analyzer 0 % (0-5); Neutrophil # 2.82 X10^3/uL (2.7-7.7); Neutrophil % 50.1 % (47-70); Platelet Count 329 K/mm3 (150-450); RBC Distribution Width CV 13.1 % (11.6-14.6); Red Blood Count 4.39 M/mm3 (4.2-5.4); White Blood Count 5.6 K/mm3 (4.4-11.0)
[2021-01-29 15:13] LABS: Anion Gap 8 (5-15); BUN 14 mg/dL (7-18); BUN/Creat Ratio 21.7 RATIO (10-20); Chloride 103 mmol/L (98-107); Creatinine, Serum 0.65 mg/dL (0.55-1.02); EST Glomerular Filtration Rate 96 mL/min (>60); Est Glom Filt Rate - Afr Amer 116 mL/min (>60); Glucose 109 mg/dL (74-106); Potassium 4.1 mmol/L (3.5-5.1); Sodium Level 136 mmol/L (136-145)
[2021-01-29 15:55] VITALS: BP 175/85; PULSE 75
[2021-01-29] MEDS: amLODIPine 5 MG Tablet PO (16:17)
[2021-01-29] MEDS: Meclizine HCl 25 MG Tablet PO (16:17)
[2021-01-29 16:48] VITALS: BP 164/91; PULSE 69
--- NOTE | 2021-01-29 17:11 | EX.ED.DYSGE1 ---
HPI History of Present Illness Chief Complaint: Dizziness Informant: patient Onset/Context/Timing Onset: Yesterday Current Severity: Mild Maximum Severity: Moderate Narrative Narrative: Patient presents secondary to dizziness and mild frontal headache. She states symptoms started 11 AM yesterday morning when she was at work. She did have leaving work early. She has felt somewhat nauseated. Symptoms do seem to be worse when she turns her head. No head trauma. No recent URI symptoms. She has noted that her blood pressure has been elevated the last 2 days as well. [facility] Medical History Hypertension Home Medications estradiol [Estrace] 1 mg PO DAILY 08/23/14 [History Last Taken Unknown] pseudoephedrine HCl [Sudogest] 60 mg PO Q6H PRN PRN 08/23/14 [History Last Taken Unknown] amlodipine [Norvasc] 5 mg PO BID 07/06/16 [History Last Taken 12/27/17 07:30] fluoxetine 10 mg PO BID 07/06/16 [History Last Taken Unknown] albuterol sulfate [ProAir HFA] 1 - 2 puff INHALATION Q4H PRN PRN 10/01/17 [History Last Taken Unknown] cholecalciferol (vitamin D3) [Vitamin D3] 2,000 unit PO DAILY 10/01/17 [History Last Taken Unknown] fexofenadine [Leonor Allergy] 180 mg PO DAILY 12/24/17 [History Last Taken Unknown] bupropion HCl 300 mg PO DAILY 01/29/21 [History Last Taken Unknown] meclizine [Antivert] 50 mg PO BID PRN #10 tab 01/29/21 [Rx Last Taken Unknown] Allergy/AdvReac Type Severity Reaction Status Date / Time cyclobenzaprine AdvReac Other Verified 01/29/21 14:34 [From Flexeril] NSAIDS (Non-Steroidal AdvReac Upset Verified 01/29/21 14:34 Anti-Inflamma Stomach phenazopyridine HCl AdvReac Other Verified 01/29/21 14:34 [From Pyridium] certain BP medications AdvReac cause sob, Uncoded 01/29/21 14:34 cough Social History Smoking Status: Never smoker ROS ROS ED Constitutional Constitutional ED: Denies chills or fever(s) Eyes Eyes: Denies change in vision ENT ENT ED: Denies sore throat Cardiovascular Cardiovascular: Denies chest pain Respiratory/Chest Respiratory/Chest: Denies cough or dyspnea Gastrointestinal Gastrointestinal: Reports nausea; Denies abdominal pain, diarrhea or vomiting Genitourinary Genitourinary ED: Denies dysuria Musculoskeletal Musculoskeletal: Denies back pain Integumentary Denies rash Neurologic Neurologic: Reports headache(s); Denies paresthesias or weakness Psychiatric Psychiatric: Denies anxiety or depression Allergic/Immunologic Allergic/Immunologic ED: Denies urticaria EXAM Physical Exam Const Vital Signs: 01/29/21 14:19 01/29/21 14:32 01/29/21 15:55 Temperature 98.8 F Temperature Source Oral Pulse Rate 90 75 Respiratory Rate 17 Respiratory Effort Normal Respiratory Pattern Normal Blood Pressure 193/110 H 175/85 H Blood Pressure Mean 137 115 Pulse Ox 95 Oxygen Delivery Method Room Air 01/29/21 16:48 Temperature Temperature Source Pulse Rate 69 Respiratory Rate Respiratory Effort Respiratory Pattern Blood Pressure 164/91 H Blood Pressure Mean 115 Pulse Ox Oxygen Delivery Method Positive well nourished and well developed General Appearance ED: well developed HEENT Reports normocephalic and head/scalp atraumatic Eyes PERRL and EOMs intact bilaterally Neck supple Chest Wall inspection of chest normal and palpation of chest normal Resp normal respiratory effort and clear to auscultation bilaterally Cardio regular rate and regular rhythm GI normal to inspection, nondistended, normoactive bowel sounds and non-tender Palpation: soft Back/Spine no CVA tenderness Extremity normal to inspection Neuro oriented x3 and no sensory deficits noted Neuro Narrative: No neurologic deficits. [id number] testing normal. Sensorium / Orientation: alert Motor Exam: strength 5/5 throughout Psych mental status grossly normal Skin no rashes or lesions noted MDM MDM MDM Narrative Medical decision making narrative: Blood work, EKG, CTA head and neck obtained. Lab Data Attestation: I reviewed the patient's lab results. Labs: Laboratory Results - last 24 hr 01/29/21 01/29/21 14:45 14:45 WBC 5.6 RBC 4.39 Hgb 14.0 Hct 40.9 MCV 93.2 MCH 31.9 MCHC 34.2 RDW Std Deviation 45.0 H RDW Coeff of Johann 13.1 Plt Count 329 MPV 9.0 Immature Gran % (Auto) 0.500 Neut % (Auto) 50.1 Lymph % (Auto) 37.4 [place] % (Auto) 9.3 Eos % (Auto) 1.8 Baso % (Auto) 0.9 Absolute Neuts (auto) 2.8 Absolute Lymphs (auto) 2.10 Nucleated RBC % 0 Sodium 136 Potassium 4.1 Chloride 103 Carbon Dioxide 25.0 Anion Gap 8 BUN 14 Creatinine 0.65 Estim Creat Clear Calc 49.00 Est GFR (MDRD) Af Amer 116 Est GFR (MDRD) Non-Af 96 BUN/Creatinine Ratio 21.7 H Glucose 109 H Calcium 9.0 Radiography Diagnostic Testing: Clinical Impression(s) from Imaging Studies Head/Neck CTA 01/29/21 14:46 IMPRESSION: Cerebral atrophy. Small right vertebral artery. Electronically Signed: Sandro Hayes MD at 15:50 EDT , Service support , EKG Initial EKG: Attestation: I personally reviewed and interpreted this EKG as follows: Interpretation: Sinus Rhythm (Sinus at 73 with no acute ischemia.) Treatment and Re-Evaluation Comments:: Patient's lab work is reviewed and largely unremarkable. EKG is sinus with no acute ischemia. CTA head and neck largely unremarkable. On repeat evaluation patient has been able to admit to the restroom and back with minimal difficulty. She was given a dose of Antivert and a half a dose of her Norvasc. Repeat blood pressures in the 160s systolic. She does state that symptoms seem to be worse with rotation of her head and I do believe this is likely peripheral vertigo. Return instructions are provided. Discharge Plan Triage Chief Complaint: Dizziness ED Provider: Kirti Julio Dx/Rx/DC Orders Clinical Impression: Vertigo Instructions: ED BPV Vertigo Prescriptions: New Antivert 50 mg tablet 50 mg PO BID PRN (Reason: dizziness) Qty: 10 RF: 0 No Action estradiol [Estrace] 0.5 MG tablet 1 mg PO DAILY RF: 0 pseudoephedrine HCl [Sudogest] 60 MG tablet 60 mg PO Q6H PRN PRN (Reason: Congestion) RF: 0 amlodipine [Norvasc] 10 MG tablet 5 mg PO BID RF: 0 fluoxetine 20 MG capsule 10 mg PO BID RF: 0 cholecalciferol (vitamin D3) [Vitamin D3] 2,000 UNIT capsule 2,000 unit PO DAILY RF: 0 albuterol sulfate [ProAir HFA] 1 PUFF inhaler 1 - 2 puff inhalation Q4H PRN PRN (Reason: Asthma) RF: 0 fexofenadine [Lenoor Allergy] 180 MG tablet 180 mg PO DAILY RF: 0 bupropion HCl 300 mg tablet extended release 24 hr 300 mg PO DAILY RF: 0 Primary Care Provider: Bell Carrasco Referrals: Bell Carrasco MD [Primary Care Provider] - 3-5 Days if not improving Disposition Disposition: Home, Self Care
[2021-01-29 17:21] VITALS: BP 167/95; PULSE 72; RESP 16; O2SAT 97
== END 2021-01-29 17:22 | disposition home or self-care (01) ==
PROVIDERS: Emergency Provider Emergency Medicine; PCP Internal Medicine
DX: R42 Dizziness and giddiness (principal); R51.9 Headache, unspecified; R11.0 Nausea; I10 Essential (primary) hypertension; Z79.899 Other long term (current) drug therapy
CPT/HCPCS: 70496; 70498; 80048; 85025; 93005; 99285; Q9967; A4216

== ENCOUNTER 2021-10-26 08:15 | Inpatient (IN) | payer MEDICARE, SELFPAY ==
[2021-10-26] VITALS (29 sets, daily range): BP systolic 87–182; BP diastolic 50–94; PULSE 49–94; RESP 12–18; TEMP 35.8–36.9; O2SAT 87–98; BMI 34.0
--- NOTE | 2021-10-26 08:39 | EKG12_ITS ---
Test Reason : Blood Pressure : / mmHG Vent. Rate : 075 BPM Atrial Rate : 075 BPM P-R Int : 162 ms QRS Dur : 092 ms QT Int : 438 ms P-R-T Axes : 066 -35 030 degrees QTc Int : 489 ms Normal sinus rhythm Left axis deviation Nonspecific ST abnormality Prolonged QT Abnormal ECG Confirmed by RAMON AGRAWAL, ALBAN ([id number]), acquisitions editor ALEXANDR OWUSU ([id number]) on 10/28/2021 8:50:04 AM Referred By: Confirmed By:ALBAN NAVARRO MD
--- NOTE | 2021-10-26 08:39 | RAD_ITS ---
STUDY: X-RAY CHEST REASON FOR EXAM: Female, 71 years old. chest pain TECHNIQUE: Single AP portable view of the chest. COMPARISON: January 30, 2017 FINDINGS: Several surgical clips are superimposed over the right lower lobe/costophrenic region. The lungs are clear and expanded. There is no demonstrated pleural abnormality. Normal size heart. Normal mediastinum and omkar. Normal visualized pulmonary arteries. Normal visualized aortic arch and descending thoracic aorta. Normal visualized thoracic spine. There is degenerative osteoarthritis of the bilateral shoulders. There is no demonstrated abnormality of the visualized soft tissue structures of the upper abdomen. RAD/Chest 1 View (Portable) IMPRESSION: No acute process Electronically Signed: Rich Montgomery MD at 9:14 EDT ,
--- NOTE | 2021-10-26 08:45 | EKG12_ITS ---
Test Reason : CP Blood Pressure : / mmHG Vent. Rate : 079 BPM Atrial Rate : 079 BPM P-R Int : 156 ms QRS Dur : 086 ms QT Int : 422 ms P-R-T Axes : 066 -35 024 degrees QTc Int : 483 ms Sinus rhythm with Premature atrial complexes Left axis deviation Nonspecific ST abnormality Abnormal ECG Confirmed by RAMON AGRAWAL, ALBAN ([id number]), acquisitions editor ALEXANDR OWUSU ([id number]) on 10/28/2021 8:50:21 AM Referred By: AKILA Confirmed By:ALBAN NAVARRO MD
[2021-10-26] MEDS: Nitroglycerin SL (ED/IMG/CATH) 0.4 MG TABLET SL (08:50)
[2021-10-26 08:56] LABS: Absolute Lymphocyte Count 3.01 X10^3/uL (0.83-4.51); Absolute Neutrophil Count 3.8 X10^3/uL (2.0-7.7); Basophil# 0.07 X10^3/uL; Basophil% 0.9 % (0-1); Eosinophil# 0.13 X10^3/uL; Eosinophils% 1.7 % (0-5); Hematocrit 40.8 % (37-47); Hemoglobin 13.3 g/dL (12.0-15.0); Lymphocyte # 3.01 X10^3/ul (0.83-4.51); Lymphocyte % 39.4 % (19-41); Mean Corp Hgb Conc 32.6 g/dL (32-36); Mean Corpuscular Hgb 30.4 pg (27.0-32.0); Mean Corpuscular Volume 93.2 fL (81-99); Mean Platelet Vol. 9.4 fl (6.2-12.0); Monocyte# 0.59 X10^3/uL; Monocyte% 7.7 % (0-10); NRBC Flagged by Analyzer 0 % (0-5); Neutrophil # 3.81 X10^3/uL (2.7-7.7); Neutrophil % 49.9 % (47-70); Platelet Count 315 K/mm3 (150-450); RBC Distribution Width CV 14.7 % (11.6-14.6); RBC Distribution Width SD 50.7 fl (35.1-43.9); Red Blood Count 4.38 M/mm3 (4.2-5.4); White Blood Count 7.6 K/mm3 (4.4-11.0)
[2021-10-26 09:08] LABS: AST(SGOT) 18 U/L (15-37); Alanine Aminotransfer ALT/SGPT 31 U/L (13-56); Albumin, Serum 3.6 g/dL (3.2-5.0); Alkaline Phosphatase 89 U/L (45-117); Bilirubin, Direct 0.11 mg/dL (0.00-0.30); Globulin 3.7 g/dL (2.2-4.2); Protein, Total 7.3 g/dL (6.4-8.2)
--- NOTE | 2021-10-26 09:09 | EDS_ITS ---
HPI History of Present Illness Chief Complaint: Chest Pain Informant: patient Narrative Narrative: 71-year-old female presenting to the emergency room with chest pain. Patient states that she woke around 4 AM today and has had pain since that time. She notes that it is central chest and feels like she needs to have a large belch. She notes that she also has pain in her jaw and left arm. She notes a brief episode of nausea but no diaphoresis or dyspnea. Patient states that this is how her pancreatitis felt. [facility] Medical History Arthritis Hypertension Pancreatitis Home Medications estradiol 0.5 mg tablet (Estrace) 1 mg PO DAILY HRT 08/23/14 [History Last Taken Unknown] pseudoephedrine HCl 60 mg tablet (Sudogest) 60 mg PO Q6H PRN PRN Congestion 08/23/14 [History Last Taken Unknown] amlodipine 10 mg tablet (Norvasc) 10 mg PO DAILY BP 07/06/16 [History Last Taken 12/27/17 07:30] albuterol sulfate 90 mcg/actuation aerosol inhaler (ProAir HFA) 1 - 2 puff inhalation Q4H PRN PRN Asthma 10/01/17 [History Last Taken Unknown] cholecalciferol (vitamin D3) 50 mcg (2,000 unit) capsule (Vitamin D3) 2,000 unit PO DAILY SUPPLEMENT 10/01/17 [History Last Taken Unknown] fexofenadine 180 mg tablet (Lenoor Allergy) 180 mg PO DAILY ALLERGIES 12/24/17 [History Last Taken Unknown] bupropion HCl 300 mg 24 hr tablet, extended release 75 mg PO DAILY 01/29/21 [History Last Taken Unknown] meclizine 50 mg tablet (Antivert) 50 mg PO BID PRN dizziness #10 tabs 01/29/21 [Rx Last Taken Unknown] escitalopram oxalate 5 mg tablet 5 mg PO DAILY 10/26/21 [History Last Taken Unknown] esomeprazole magnesium 20 mg capsule,delayed release (Nexium) 0 mg PO DAILY 10/26/21 [History Last Taken Unknown] Allergy/AdvReac Type Severity Reaction Status Date / Time cyclobenzaprine AdvReac Other Verified 10/26/21 08:16 [From Flexeril] NSAIDS (Non-Steroidal AdvReac Upset Verified 10/26/21 08:16 Anti-Inflamma Stomach phenazopyridine HCl AdvReac Other Verified 10/26/21 08:16 [From Pyridium] certain BP medications AdvReac cause sob, Uncoded 10/26/21 08:16 cough Social History (Updated 10/26/21 @ 09:[address] Ac Lopez, DO) Smoking Status: Never smoker substance use type: does not use ROS ROS ED Constitutional Constitutional ED: Denies chills or weight loss Eyes Eyes: Denies change in vision or diplopia ENT ENT ED: Denies ear pain, rhinorrhea or sore throat Cardiovascular Cardiovascular: Reports chest pain; Denies orthopnea, palpitations or racing heartbeat Respiratory/Chest Respiratory/Chest: Denies cough, dyspnea or orthopnea Gastrointestinal Gastrointestinal: Reports nausea; Denies abdominal pain, diarrhea or vomiting Genitourinary Genitourinary ED: Denies dysuria, hematuria or urinary frequency Musculoskeletal Musculoskeletal: Denies arthralgias or myalgias Integumentary Denies abscess or rash Neurologic Neurologic: Denies headache(s) or weakness Psychiatric Psychiatric: Denies anxiety, depression, suicidal ideation or suicidal thoughts Endocrine Endocrinology: Denies polydipsia, polyphagia or polyuria Allergic/Immunologic Allergic/Immunologic ED: Denies mouth swelling, tongue swelling or urticaria EXAM Physical Exam Const Vital Signs: 10/26/21 08:16 10/26/21 08:20 10/26/21 08:50 Temperature 96.5 F L Temperature Source Temporal Pulse Rate 94 77 Respiratory Rate 18 Respiratory Effort Normal Non-Labored Blood Pressure 182/92 H 161/93 H Blood Pressure Mean 122 Pulse Ox 96 Oxygen Delivery Method Room Air 10/26/21 09:05 10/26/21 09:22 Temperature Temperature Source Pulse Rate 69 Respiratory Rate 12 Respiratory Effort Blood Pressure 87/53 L 117/72 Blood Pressure Mean 64 87 Pulse Ox 96 Oxygen Delivery Method Room Air Positive well nourished and well developed General Appearance ED: well developed HEENT Reports normocephalic, head/scalp atraumatic and moist mucous membranes Eyes PERRL and EOMs intact bilaterally Neck no lymphadenopathy, supple and no JVD Resp normal respiratory effort and clear to auscultation bilaterally Cardio regular rate, regular rhythm and no murmurs GI normal to inspection, nondistended, normoactive bowel sounds and non-tender Palpation: soft Back/Spine no CVA tenderness and normal ROM Extremity normal to inspection General Extremety ED: Negative for edema General Extremity: Negative for edema Neuro oriented x3 and CN's II-XII intact bilaterally Sensorium / Orientation: alert Motor Exam: strength 5/5 throughout Psych mental status grossly normal Mood & Affect: Negative for depressed or tearful Skin no rashes or lesions noted and no wounds MDM MDM MDM Narrative Medical decision making narrative: Initial EKG shows a normal sinus rhythm. The patient told me that her pain was coming back and so approximately 15 minutes after the initial EKG a second 1 was obtained which does not show any significant change. She was given a nitroglycerin which dropped her blood pressure to 87/53. A small fluid bolus was ordered and the patient received morphine and Zofran. Her blood pressure has since returned to normal. Potation of the chest x-ray is no acute process. CBC BMP showed a glucose of 145. Normal liver and lipase. Troponin returns elevated at 145. She received aspirin and I spoke with our interventional list Dr. Bradford. He has requested that the patient be placed on a heparin drip and we will plan for heart catheterization tomorrow. Lab Data Attestation: I reviewed the patient's lab results. Labs: Laboratory Results - last 24 hr 10/26/21 10/26/21 10/26/21 08:19 08:19 08:19 WBC 7.6 RBC 4.38 Hgb 13.3 Hct 40.8 MCV 93.2 MCH 30.4 MCHC 32.6 RDW Std Deviation 50.7 H RDW Coeff of Johann 14.7 H Plt Count 315 MPV 9.4 Immature Gran % (Auto) 0.400 Neut % (Auto) 49.9 Lymph % (Auto) 39.4 [place] % (Auto) 7.7 Eos % (Auto) 1.7 Baso % (Auto) 0.9 Absolute Neuts (auto) 3.8 Absolute Lymphs (auto) 3.01 Nucleated RBC % 0 Sodium 137 Potassium 3.7 Chloride 102 Carbon Dioxide 27.0 Anion Gap 8 BUN 13 Creatinine 0.64 Estim Creat Clear Calc 48.30 Est GFR (MDRD) Af Amer 118 Est GFR (MDRD) Non-Af 97 BUN/Creatinine Ratio 20.3 H Glucose 145 H Calcium 9.0 Total Bilirubin 0.40 Direct Bilirubin 0.11 AST 18 ALT 31 Alkaline Phosphatase 89 Troponin I High Sens 145 H* Total Protein 7.3 Albumin 3.6 Globulin 3.7 Lipase 87 Radiography Diagnostic Testing: Clinical Impression(s) from Imaging Studies Chest X-Ray 10/26/21 08:39 IMPRESSION: No acute process Electronically Signed: Rich Montgomery MD at 9:14 EDT Reading Location ID and State: [address] [place] [address] , Service support , EKG Initial EKG: Attestation: I personally reviewed and interpreted this EKG as follows: Comments: Normal sinus rhythm ventricular rate of 79 bpm. Follow-up EKG: Attestation: I personally reviewed and interpreted this EKG as follows: Comments: Normal sinus rhythm with a ventricular rate of 75 bpm. No significant change from earlier Critical Care Time Critical Care Time: Yes Critical care time (excluding procedures): 30-74 minutes (33 min), Including time spent:, Discussing w/Patient &/or Family/Basting Puller, Discussing w/Consultants, Arranging Admission or Transfer and Performing Direct Patient Care at Bedside Discharge Plan Dx/Rx/DC Orders Clinical Impression: ACS (acute coronary syndrome), Chest pain, Hypertension Disposition Disposition: Acute Care [facility]
[2021-10-26 09:15] LABS: Anion Gap 8 (5-15); BUN 13 mg/dL (7-18); BUN/Creat Ratio 20.3 RATIO (10-20); Chloride 102 mmol/L (98-107); Creatinine, Serum 0.64 mg/dL (0.55-1.02); EST Glomerular Filtration Rate 97 mL/min (>60); Est Glom Filt Rate - Afr Amer 118 mL/min (>60); Glucose 145 mg/dL (74-106); Lipase 87 U/L (73-393); Potassium 3.7 mmol/L (3.5-5.1); Sodium Level 137 mmol/L (136-145); Troponin-I HS (w/2H Reflex) 145 pg/mL (3.0-54.0)
[2021-10-26] MEDS: Morphine 4 MG/ML Syringe IV ×2 (09:26→10:29)
[2021-10-26] MEDS: Aspirin 325 MG Tablet PO (09:27)
[2021-10-26] MEDS: Ondansetron 4 MG/2 ML Vial IV (09:27)
[2021-10-26 09:40] LABS: International Normalized Ratio 0.9
[2021-10-26 09:41] LABS: Partial Thromboplast Time 24.6 Seconds (24.1-36.2)
[2021-10-26] MEDS: Heparin Injection (Vial) 5,000 UNIT/ML VIAL 7500 UNIT IV (09:45)
[2021-10-26] MEDS: HEPARIN/D5w 25,000 UNITS 25,000 UNITS/250 ML IV.SOLN. 14 UNITS CONT INF (09:45)
--- NOTE | 2021-10-26 09:55 | NURSING ---
DR MARTIN FOR DR WILBURN
[2021-10-26 10:45] LABS: Reflex Troponin-HS? (from REC) Y
--- NOTE | 2021-10-26 11:45 | PCM.HP.STD ---
Documented by User: MALISSA Baires 10/26/21 11:55 HPI - General General Date of Admission: 10/26/21 Date of Service: 10/26/21 Chief Complaint: Chest pain HPI Narrative SAMMY KNAPP, is a 71 F who presents with reports that she was awoken at about 4:30 AM with complaints of chest pain that radiated into her jaw and her left arm. Patient states that this happened intermittently yesterday and when she was awoken with the pain she decided that she needed to come to the ER. Patient reports that she does not have a history of coronary artery disease however she states that she has a large family history. Patient's only other medical history includes GERD and depression and anxiety. [facility] Medical History Arthritis Hypertension Pancreatitis Home Medications estradiol 0.5 mg tablet (Estrace) 1 mg PO DAILY HRT 08/23/14 [History Last Taken Unknown] pseudoephedrine HCl 60 mg tablet (Sudogest) 60 mg PO Q6H PRN PRN Congestion 08/23/14 [History Last Taken Unknown] amlodipine 10 mg tablet (Norvasc) 10 mg PO DAILY BP 07/06/16 [History Last Taken 12/27/17 07:30] albuterol sulfate 90 mcg/actuation aerosol inhaler (ProAir HFA) 1 - 2 puff inhalation Q4H PRN PRN Asthma 10/01/17 [History Last Taken Unknown] cholecalciferol (vitamin D3) 50 mcg (2,000 unit) capsule (Vitamin D3) 2,000 unit PO DAILY SUPPLEMENT 10/01/17 [History Last Taken Unknown] fexofenadine 180 mg tablet (Leonor Allergy) 180 mg PO DAILY ALLERGIES 12/24/17 [History Last Taken Unknown] bupropion HCl 300 mg 24 hr tablet, extended release 75 mg PO DAILY 01/29/21 [History Last Taken Unknown] meclizine 50 mg tablet (Antivert) 50 mg PO BID PRN dizziness #10 tabs 01/29/21 [Rx Last Taken Unknown] escitalopram oxalate 5 mg tablet 5 mg PO DAILY 10/26/21 [History Last Taken Unknown] esomeprazole magnesium 20 mg capsule,delayed release (Nexium) 0 mg PO DAILY 10/26/21 [History Last Taken Unknown] Allergy/AdvReac Type Severity Reaction Status Date / Time cyclobenzaprine AdvReac Other Verified 10/26/21 08:16 [From Flexeril] NSAIDS (Non-Steroidal AdvReac Upset Verified 10/26/21 08:16 Anti-Inflamma Stomach phenazopyridine HCl AdvReac Other Verified 10/26/21 08:16 [From Pyridium] certain BP medications AdvReac cause sob, Uncoded 10/26/21 08:16 cough Social History Smoking Status: Never smoker substance use type: does not use ROS Constitutional Constitutional: Denies anorexia, chills, fatigue, fever(s) or malaise Cardiovascular Cardiovascular: Reports chest pain and radiating jaw, neck or arm pain; Denies edema, orthopnea, palpitations or syncope Respiratory/Chest Respiratory/Chest: Denies cough, hemoptysis, shortness of breath at rest, shortness of breath with exertion or wheezing Gastrointestinal Gastrointestinal: Denies abdominal pain, constipation, diarrhea, nausea or vomiting Genitourinary Genitourinary: Denies dysuria Musculoskeletal Musculoskeletal: Denies back pain, extremity pain, joint pain or joint stiffness Integumentary Integumentary: Denies dry skin Neurologic Neurologic: Denies abnormal gait, abnormal speech, confusion or dizziness Psychiatric Psychiatric: Denies anxiety or depression Endocrine Endocrinology: Denies change in body appearance Hematologic/Lymphatic Hematologic/Lymphatic: Denies anemia Vital Signs Vital Signs Vital Signs: 10/26/21 08:16 10/26/21 08:20 10/26/21 08:50 Temperature 96.5 F L Temperature Source Temporal Pulse Rate 94 77 Respiratory Rate 18 Respiratory Effort Normal Non-Labored Blood Pressure 182/92 H 161/93 H Blood Pressure Mean 122 Pulse Ox 96 Oxygen Delivery Method Room Air 10/26/21 09:05 10/26/21 09:22 10/26/21 09:29 Temperature 96.8 F L Temperature Source Temporal Pulse Rate 69 70 Respiratory Rate 12 14 Respiratory Effort Blood Pressure 87/53 L 117/72 117/62 Blood Pressure Mean 64 87 80 Pulse Ox 96 96 Oxygen Delivery Method Room Air Room Air 10/26/21 10:16 Temperature 96.8 F L Temperature Source Temporal Pulse Rate 79 Respiratory Rate 18 Respiratory Effort Blood Pressure 147/81 H Blood Pressure Mean 103 Pulse Ox 98 Oxygen Delivery Method Room Air Weight Weight: 210 lb 12.191 oz Body Mass Index (BMI) 34.0 Physical Exam Const alert, oriented x3 and no apparent distress HEENT normocephalic, head/scalp atraumatic and moist oral mucous membranes Eyes conjunctivae normal and no scleral icterus Neck supple General: trachea midline Lymph Lymphatic: no lymphadenopathy noted Resp normal respiratory effort, normal air movement and clear to auscultation bilaterally Cardio regular rate, regular rhythm, S1 normal heart sound, S2 normal heart sound and peripheral pulses 2+ throughout GI normal to inspection, nondistended, normoactive bowel sounds, soft to palpation and non-tender Extremity normal capillary refill and no clubbing, cyanosis or edema Skin General Skin Exam: no breakdown Lesions: no lesions Rashes: no rashes Neuro oriented x3, moves all extremities, no focal motor deficits and no sensory deficits noted Psych thought process normal, cooperative and affect normal Results Lab / Micro Data Result Diagrams: 10/26/21 08:19 10/26/21 08:19 Labs: Laboratory Results - last 24 hr 10/26/21 08:19: Total Bilirubin 0.40, Direct Bilirubin 0.11, AST 18, ALT 31, Alkaline Phosphatase 89, Total Protein 7.3, Albumin 3.6, Globulin 3.7 10/26/21 08:19: WBC 7.6, RBC 4.38, Hgb 13.3, Hct 40.8, MCV 93.2, MCH 30.4, MCHC 32.6, RDW Std Deviation 50.7 H, RDW Coeff of Johann 14.7 H, Plt Count 315, MPV 9.4, Immature Gran % (Auto) 0.400, Neut % (Auto) 49.9, Lymph % (Auto) 39.4, [place] % (Auto) 7.7, Eos % (Auto) 1.7, Baso % (Auto) 0.9, Absolute Neuts (auto) 3.8, Absolute Lymphs (auto) 3.01, Nucleated RBC % 0 10/26/21 08:19: Sodium 137, Potassium 3.7, Chloride 102, Carbon Dioxide 27.0, Anion Gap 8, BUN 13, Creatinine 0.64, Estim Creat Clear Calc 48.30, Est GFR (MDRD) Af Amer 118, Est GFR (MDRD) Non-Af 97, BUN/Creatinine Ratio 20.3 H, Glucose 145 H, Calcium 9.0, Troponin I High Sens 145 H*, Lipase 87 10/26/21 08:19: PT 12.0, INR 0.9, APTT 24.6 Radiology Impression Chest X-Ray 10/26/21 08:39 IMPRESSION: No acute process Electronically Signed: Rich Montgomery MD at 9:14 EDT Reading Location ID and State: [facility] / [place] , Service support , Assessment & Plan Assessment/Plan (1) ACS (acute coronary syndrome): PLAN: Plan 1. Chest pain -Admit to PCU -Patient initiated on heparin drip in ER, will continue -Cardiology consulted, case discussed with exhaust emissions automotive technician by ER physician -Patient was given 1 dose sublingual nitroglycerin in ER and subsequently developed hypotension -As needed morphine ordered for chest pain -Trend cardiac enzymes -CBC and CMP daily -Cardiac diet ordered, n.p.o. at midnight 2. Hypertension -Continue amlodipine -Vital signs per protocol, currently stable 3. Depression and anxiety -Continue escitalopram and bupropion DVT prophylaxis-patient on heparin drip This patient was seen by MALISSA Baires under the supervision of Dr. Nicolas. 28 minutes spent in clinical coordination of patient's plan of care. Documented by User: Dr. Chandra Nicolas MD 10/26/21 13:06 HPI - General General Date of Admission: 10/26/21 [facility] Medical History Arthritis Hypertension Pancreatitis Home Medications estradiol 0.5 mg tablet (Estrace) 1 mg PO DAILY HRT 08/23/14 [History Last Taken Unknown] pseudoephedrine HCl 60 mg tablet (Sudogest) 60 mg PO Q6H PRN PRN Congestion 08/23/14 [History Last Taken Unknown] amlodipine 10 mg tablet (Norvasc) 10 mg PO DAILY BP 07/06/16 [History Last Taken 12/27/17 07:30] albuterol sulfate 90 mcg/actuation aerosol inhaler (ProAir HFA) 1 - 2 puff inhalation Q4H PRN PRN Asthma 10/01/17 [History Last Taken Unknown] cholecalciferol (vitamin D3) 50 mcg (2,000 unit) capsule (Vitamin D3) 2,000 unit PO DAILY SUPPLEMENT 10/01/17 [History Last Taken Unknown] fexofenadine 180 mg tablet (Leonor Allergy) 180 mg PO DAILY ALLERGIES 12/24/17 [History Last Taken Unknown] bupropion HCl 300 mg 24 hr tablet, extended release 75 mg PO DAILY 01/29/21 [History Last Taken Unknown] meclizine 50 mg tablet (Antivert) 50 mg PO BID PRN dizziness #10 tabs 01/29/21 [Rx Last Taken Unknown] escitalopram oxalate 5 mg tablet 5 mg PO DAILY 10/26/21 [History Last Taken Unknown] esomeprazole magnesium 20 mg capsule,delayed release (Nexium) 0 mg PO DAILY 10/26/21 [History Last Taken Unknown] Allergy/AdvReac Type Severity Reaction Status Date / Time cyclobenzaprine AdvReac Other Verified 10/26/21 08:16 [From Flexeril] NSAIDS (Non-Steroidal AdvReac Upset Verified 10/26/21 08:16 Anti-Inflamma Stomach phenazopyridine HCl AdvReac Other Verified 10/26/21 08:16 [From Pyridium] certain BP medications AdvReac cause sob, Uncoded 10/26/21 08:16 cough Social History Smoking Status: Never smoker substance use type: does not use Results Lab / Micro Data Result Diagrams: 10/26/21 08:19 10/26/21 08:19 Assessment & Plan Assessment/Plan (1) ACS (acute coronary syndrome): Charges/Coding Addendum Addendum: Addendum: Dr. Nicolas I personally examined the patient and reviewed the chart. I agree with the above. 71-year-old female with an extensive family history of cardiac disease presents to the hospital with chest pain. She was given a dose of nitroglycerin in the ER which dropped her blood pressure significantly. We will hold off on any nitroglycerin while inpatient. Initially troponin was 145 with a nonischemic EKG. We will continue with morphine for any pain control, and we will also continue with a heparin drip. We will consult cardiology for heart cath in the morning. Clinical time spent in all aspects of patient care: 35 minutes Visit Charges Inpatient E&M: 73715 Init Hosp L2
[2021-10-26 12:22] LABS: Troponin-I HS 715 pg/mL (3.0-54.0)
--- NOTE | 2021-10-26 12:56 | EKG12_ITS ---
Test Reason : Blood Pressure : / mmHG Vent. Rate : 070 BPM Atrial Rate : 070 BPM P-R Int : 164 ms QRS Dur : 082 ms QT Int : 462 ms P-R-T Axes : 067 -20 055 degrees QTc Int : 498 ms Sinus rhythm with Premature atrial complexes Prolonged QT Abnormal ECG When compared with ECG of 26-OCT-2021 08:36, MANUAL COMPARISON REQUIRED, DATA IS UNCONFIRMED Confirmed by RAMON AGRAWAL, ALBAN ([id number]), primer expeditor and drier ALEXANDR OWUSU ([id number]) on 10/28/2021 9:07:44 AM Referred By: Confirmed By:ALBAN NAVARRO MD
[2021-10-26] MEDS: buPROPion (XL) 150 MG TABLET.XL 75 MG PO (13:18)
[2021-10-26] MEDS: Pantoprazole Sodium 20 MG Tablet PO (13:18)
[2021-10-26] MEDS: amLODIPine 10 MG Tablet PO (13:18)
[2021-10-26] MEDS: Escitalopram Oxalate 10 MG Tablet 5 MG PO (13:19)
[2021-10-26] MEDS: Loratadine 10 MG Tablet PO (13:19)
[2021-10-26] MEDS: Morphine 2 MG/ML Syringe IV (13:37)
--- NOTE | 2021-10-26 13:54 | EKG12_ITS ---
Test Reason : Blood Pressure : / mmHG Vent. Rate : 069 BPM Atrial Rate : 069 BPM P-R Int : 162 ms QRS Dur : 084 ms QT Int : 450 ms P-R-T Axes : 066 -21 049 degrees QTc Int : 482 ms Normal sinus rhythm Nonspecific ST abnormality Abnormal ECG When compared with ECG of 26-OCT-2021 13:20, MANUAL COMPARISON REQUIRED, DATA IS UNCONFIRMED Confirmed by RAMON AGRAWAL, ALBAN ([id number]), metropolitan editor ALEXANDR OWUSU ([id number]) on 10/28/2021 9:07:56 AM Referred By: Confirmed By:ALBAN NAVAROR MD
--- NOTE | 2021-10-26 14:17 | PCM.HOSP.N ---
Hospitalist Note Patient currently stable however following evaluation by Dr. Bradford it was decided that patient would be transferred to ICU for closer monitoring as patient continues to have chest pain and was hypotensive following nitroglycerin administration. Dr. Nicolas updated on Dr. Brdaford's recommendation and agreeable.
--- NOTE | 2021-10-26 14:31 | PCM.CONS.C ---
Assessment & Plan Assessment/Plan (1) Chest pain: (2) Hypertension: (3) ACS (acute coronary syndrome): (4) Non-ST elevation SC (NSTEMI): PLAN: 71-year-old patient presented to the ER with symptoms of chest pain she had significant family history of CAD both parents had history of myocardial infarction as well as sisters. Symptoms of chest pain started early this morning around 4:00 when she came to the ER she had still retrosternal chest pain with radiation to the jaw and left arm classical angina symptoms With subsequent elevation of cardiac biomarkers with a clinical diagnosis of non-ST elevation SC. Patient was given nitroglycerin in the ER which dropped her systolic blood pressure to 80. And was transferred to PCU When I saw her in PCU she was still having chest pain repeat EKG showed no ST elevation or significant ST depression. Cardiac care plan recommendations; 1. We will continue current treatment with heparin aspirin and will add statin And morphine as needed 2. Patient could not tolerate nitroglycerin due to hypotension 3. The architecture consultant showed underlying normal sinus 4. We will evaluate with echocardiogram and will proceed with cardiac catheterization. Will continue to have a series of cardiac biomarker/high sensitive troponin Other medical problem include history of hypertension History of anxiety and depression. HPI Consult Data Date of Consult: 10/26/21 HPI Narrative Reason for Consultation: CAD/non-STEMI HPI Narrative: SAMMY KNAPP, is a 71 F who presents [facility] Medical History Arthritis Hypertension Pancreatitis Home Medications estradiol 0.5 mg tablet (Estrace) 1 mg PO DAILY HRT 08/23/14 [History Last Taken Unknown] pseudoephedrine HCl 60 mg tablet (Sudogest) 60 mg PO Q6H PRN PRN Congestion 08/23/14 [History Last Taken Unknown] amlodipine 10 mg tablet (Norvasc) 10 mg PO DAILY BP 07/06/16 [History Last Taken 12/27/17 07:30] albuterol sulfate 90 mcg/actuation aerosol inhaler (ProAir HFA) 1 - 2 puff inhalation Q4H PRN PRN Asthma 10/01/17 [History Last Taken Unknown] cholecalciferol (vitamin D3) 50 mcg (2,000 unit) capsule (Vitamin D3) 2,000 unit PO DAILY SUPPLEMENT 10/01/17 [History Last Taken Unknown] fexofenadine 180 mg tablet (Leonor Allergy) 180 mg PO DAILY ALLERGIES 12/24/17 [History Last Taken Unknown] bupropion HCl 300 mg 24 hr tablet, extended release 75 mg PO DAILY 01/29/21 [History Last Taken Unknown] meclizine 50 mg tablet (Antivert) 50 mg PO BID PRN dizziness #10 tabs 01/29/21 [Rx Last Taken Unknown] escitalopram oxalate 5 mg tablet 5 mg PO DAILY 10/26/21 [History Last Taken Unknown] esomeprazole magnesium 20 mg capsule,delayed release (Nexium) 0 mg PO DAILY 10/26/21 [History Last Taken Unknown] Allergy/AdvReac Type Severity Reaction Status Date / Time cyclobenzaprine AdvReac Other Verified 10/26/21 08:16 [From Flexeril] NSAIDS (Non-Steroidal AdvReac Upset Verified 10/26/21 08:16 Anti-Inflamma Stomach phenazopyridine HCl AdvReac Other Verified 10/26/21 08:16 [From Pyridium] certain BP medications AdvReac cause sob, Uncoded 10/26/21 08:16 cough Social History Smoking Status: Never smoker substance use type: does not use Physical Exam Narrative Patient seen at bedside still having retrosternal chest pain relieved to some extent with morphine Evidently she was given some nitroglycerin in the ER which dropped her blood pressure to systolic of around 80. Cardiovascular exam S1-S2 regular Chest exam is clear to auscultation Abdomen soft Examination lower extremity no clubbing no cyanosis no lower extremity edema Risk Stratification Risk Stratification Applicable: Yes Age >/= 65: Yes >/= 3 CAD Risk Factors (HTN, HLD, DM, family hx of CAD, or current smoker): Yes Aspirin Use in the Past 7 Days: Yes Severe Angina (>/= episodes in 24 hours): Yes EKG ST Changes >/= 0.5mm: No Positive Cardiac Marker: Yes STVEEN Risk Stratification Score: 5 STEVEN % Risk: 25% Risk Objective Data Vital Signs: Vital Signs Temp Pulse Resp BP Pulse Ox O2 Del Method 98.4 F 71 16 141/94 H 94 Room Air 10/26/21 11:30 10/26/21 11:46 10/26/21 11:30 10/26/21 11:30 10/26/21 11:30 10/26/21 11:30 Oxygen Delivery Method Room Air Weight: 207 lb 3.752 oz Body Mass Index (BMI) 34.0 Intake & Output: Intake and Output for Last 24 Hours 10/24/21 10/25/21 10/26/21 23:59 23:59 23:59 Intake Total 500 / 500 Balance 500 / 500 Lab / Micro Data Result Diagrams: 10/26/21 08:19 10/26/21 08:19 Labs: Laboratory Results - last 24 hr 10/26/21 08:19: Total Bilirubin 0.40, Direct Bilirubin 0.11, AST 18, ALT 31, Alkaline Phosphatase 89, Total Protein 7.3, Albumin 3.6, Globulin 3.7 10/26/21 08:19: WBC 7.6, RBC 4.38, Hgb 13.3, Hct 40.8, MCV 93.2, MCH 30.4, MCHC 32.6, RDW Std Deviation 50.7 H, RDW Coeff of Johann 14.7 H, Plt Count 315, MPV 9.4, Immature Gran % (Auto) 0.400, Neut % (Auto) 49.9, Lymph % (Auto) 39.4, Nolan % (Auto) 7.7, Eos % (Auto) 1.7, Baso % (Auto) 0.9, Absolute Neuts (auto) 3.8, Absolute Lymphs (auto) 3.01, Nucleated RBC % 0 10/26/21 08:19: Sodium 137, Potassium 3.7, Chloride 102, Carbon Dioxide 27.0, Anion Gap 8, BUN 13, Creatinine 0.64, Estim Creat Clear Calc 48.30, Est GFR (MDRD) Af Amer 118, Est GFR (MDRD) Non-Af 97, BUN/Creatinine Ratio 20.3 H, Glucose 145 H, Calcium 9.0, Troponin I High Sens 145 H*, Lipase 87 10/26/21 08:19: PT 12.0, INR 0.9, APTT 24.6 10/26/21 11:40: Troponin I High Sens 715 H* Cardiology Labs/Tests 10/26/21 08:19: Total Bilirubin 0.40, Direct Bilirubin 0.11 10/26/21 08:19: WBC 7.6, RBC 4.38, Hgb 13.3, Hct 40.8, MCV 93.2, MCH 30.4, MCHC 32.6, Plt Count 315, MPV 9.4, Immature Gran % (Auto) 0.400, Neut % (Auto) 49.9, Lymph % (Auto) 39.4, Nolan % (Auto) 7.7, Eos % (Auto) 1.7, Baso % (Auto) 0.9, Absolute Neuts (auto) 3.8, Nucleated RBC % 0 10/26/21 08:19: Sodium 137, Potassium 3.7, Chloride 102, Carbon Dioxide 27.0, Anion Gap 8, BUN 13, Creatinine 0.64, Est GFR (MDRD) Af Amer 118, Est GFR (MDRD) Non-Af 97, BUN/Creatinine Ratio 20.3 H, Glucose 145 H, Calcium 9.0 10/26/21 08:19: PT 12.0, INR 0.9, APTT 24.6 Rhythm: Normal sinus rhythm EKG: Normal sinus rhythm with nonspecific ST-T change Radiography Diagnostic Testing: Radiology Impression Chest X-Ray 10/26/21 08:39 IMPRESSION: No acute process Electronically Signed: Rich Montgomery MD at 9:14 EDT Reading Location ID and State: [facility] / [place] , Service support ,
[2021-10-26 15:03] LABS: Troponin-I HS 1560 pg/mL (3.0-54.0)
[2021-10-26] MEDS: Nitroglycerin (INPATIENT USE) 0.4 MG TAB.SUBL SL (15:27)
[2021-10-26 16:01] LABS: Partial Thromboplast Time 101.7 Seconds (24.1-36.2)
[2021-10-26] MEDS: Acetaminophen 325 MG Tablet 650 MG PO (20:04)
[2021-10-26] MEDS: Atorvastatin Calcium 40 MG Tablet PO (20:05)
[2021-10-27] VITALS (26 sets, daily range): BP systolic 113–141; BP diastolic 63–84; PULSE 64–82; RESP 12–20; TEMP 36–36.2; O2SAT 92–97
[2021-10-27 00:09] LABS: Partial Thromboplast Time 37.7 Seconds (24.1-36.2)
[2021-10-27] MEDS: Heparin Injection (Vial) 5,000 UNIT/ML VIAL IV ×2 (00:13→06:53)
[2021-10-27] MEDS: HEPARIN/D5w 25,000 UNITS 25,000 UNITS/250 ML IV.SOLN. 14 UNITS CONT INF (04:39)
--- NOTE | 2021-10-27 06:03 | EKG12_ITS ---
Test Reason : PRE-OP Blood Pressure : / mmHG Vent. Rate : 067 BPM Atrial Rate : 067 BPM P-R Int : 164 ms QRS Dur : 080 ms QT Int : 484 ms P-R-T Axes : 061 -13 061 degrees QTc Int : 511 ms Normal sinus rhythm Septal infarct , age undetermined Prolonged QT Abnormal ECG When compared with ECG of 26-OCT-2021 14:02, MANUAL COMPARISON REQUIRED, DATA IS UNCONFIRMED Confirmed by RAMON AGRAWAL, ALBAN ([id number]), writer editor ALEXANDR OWUSU ([id number]) on 10/28/2021 9:12:25 AM Referred By: ALPESH Confirmed By:ALBAN NAVARRO MD
[2021-10-27 06:37] LABS: Partial Thromboplast Time 52.5 Seconds (24.1-36.2)
[2021-10-27 06:38] LABS: Anion Gap 8 (5-15); BUN 10 mg/dL (7-18); BUN/Creat Ratio 18.6 RATIO (10-20); Calcium,Total 8.5 mg/dL (8.5-10.1); Chloride 102 mmol/L (98-107); Creatinine, Serum 0.54 mg/dL (0.55-1.02); EST Glomerular Filtration Rate 119 mL/min (>60); Est Glom Filt Rate - Afr Amer 143 mL/min (>60); Glucose 119 mg/dL (74-106); Potassium 3.6 mmol/L (3.5-5.1); Sodium Level 137 mmol/L (136-145)
[2021-10-27 06:46] LABS: Absolute Lymphocyte Count 3.64 X10^3/uL (0.83-4.51); Absolute Neutrophil Count 3.6 X10^3/uL (2.0-7.7); Basophil# 0.05 X10^3/uL; Basophil% 0.6 % (0-1); Eosinophil# 0.15 X10^3/uL; Eosinophils% 1.9 % (0-5); Hematocrit 37.8 % (37-47); Hemoglobin 12.2 g/dL (12.0-15.0); Lymphocyte # 3.64 X10^3/ul (0.83-4.51); Lymphocyte % 45.2 % (19-41); Mean Corp Hgb Conc 32.3 g/dL (32-36); Mean Corpuscular Hgb 30.6 pg (27.0-32.0); Mean Corpuscular Volume 94.7 fL (81-99); Mean Platelet Vol. 9.5 fl (6.2-12.0); Monocyte# 0.64 X10^3/uL; Monocyte% 7.9 % (0-10); NRBC Flagged by Analyzer 0 % (0-5); Neutrophil # 3.55 X10^3/uL (2.7-7.7); Platelet Count 293 K/mm3 (150-450); RBC Distribution Width SD 52.1 fl (35.1-43.9); Red Blood Count 3.99 M/mm3 (4.2-5.4); White Blood Count 8.1 K/mm3 (4.4-11.0)
[2021-10-27] MEDS: amLODIPine 10 MG Tablet PO (09:10)
[2021-10-27] MEDS: Pantoprazole Sodium 20 MG Tablet PO (09:10)
[2021-10-27] MEDS: 0.9% Saline Lock 10 ML Syringe IV (09:13)
--- NOTE | 2021-10-27 09:27 | NURSING ---
To computer lab para professional via bed
[2021-10-27] MEDS: 0.9% Normal Saline 1,000 ML 70 ML IV (10:44)
[2021-10-27] MEDS: Loratadine 10 MG Tablet PO (10:47)
[2021-10-27] MEDS: buPROPion 75 MG Tablet PO (10:48)
--- NOTE | 2021-10-27 10:55 | CASEMGMT ---
[facility] website, the following are in-network tertiary facilities: [facility], [facility], [facility], [facility], [facility], [facility], [facility], [facility], and . Tasha JIN CM
--- NOTE | 2021-10-27 11:10 | ECHOD_ITS ---
Reason For Study: Chest Pain Procedure This was a 2D Doppler, Color Flow transthoracic echocardiogram. Exam performed portable in ICU/CCU. Left Ventricle Normal LV size. Left ventricular systolic function is normal. Stage 2 diastolic dysfunction. No regional wall motion abnormalities noted. Right Ventricle Normal RV size. Normal systolic function. Atria Normal left atrium. Normal right atrium. Mitral Valve Normal mitral valve. Tricuspid Valve Normal tricuspid valve. Aortic Valve Normal aortic valve. Trisinus/trileaflet aortic valve. Pulmonic Valve Normal pulmonic valve. Great Vessels Normal aortic root. The pulmonary artery is normal size. Normal inferior vena cava. Pericardium/Pleural No pericardial effusion. MMode/2D Measurements & Calculations LVIDd: 4.9 cm IVSd: 1.3 cm Ao root diam: 3.6 cm LVIDs: 3.1 cm LVPWd: 0.98 cm FS: 36.8 % LAV(MOD-bp): 40.0 ml LVAd ap4: 25.2 cm2 SV(MOD-sp4): 42.9 ml LAV(MOD-bp) Indexed: 19.8 ml/m2 LVLd ap4: 7.7 cm LAV(MOD-sp2): 47.2 ml EDV(MOD-sp4): 68.4 ml LAV(MOD-sp4): 32.4 ml EDV(sp4-el): 69.6 ml LVAs ap4: 13.5 cm2 LVLs ap4: 6.4 cm ESV(MOD-sp4): 25.4 ml ESV(sp4-el): 24.2 ml EF(MOD-sp4): 62.8 % EF(sp4-el): 65.3 % SV(sp4-el): 45.4 ml LA A4 area: 15.2 cm2 RA A4 area: 12.2 cm2 Doppler Measurements & Calculations MV E max brad: 117.6 cm/sec Lat Peak E' Brad: 8.2 cm/sec Med Peak E' Brad: 8.0 cm/sec MV A max brad: 101.8 cm/sec E/E' lat: 14.4 E/E' med: 14.7 MV E/A: 1.2 Ao V2 max: 136.5 cm/sec LV V1 max: 108.2 cm/sec PA V2 max: 79.1 cm/sec Ao max P.4 mmHg LV V1 max P.7 mmHg Ao V2 mean: 100.0 cm/sec Ao mean P.3 mmHg Ao V2 VTI: 32.4 cm ECHO/Echo Complete Interpretation Summary Normal LV size. Left ventricular systolic function is normal. Stage 2 diastolic dysfunction. Structurally normal valves. Ordering Physician: Surinder Rahman Referring Physician: Bell Carrasco Performed By: Keyana Diggs, SAMAN, RVT
--- NOTE | 2021-10-27 11:36 | CL.D_ITS ---
Patient Name: SAMMY KNAPP Study Date: 10/27/2021 Performing: Radha Michel MD Ht: 66.14 inches 168 cm : 1950 Wt: 205.03 lbs 93 kg Age: 71 Gender: female BSA: 2.02 PROCEDURE(S) PERFORMED [id number])[facility] CLINICAL PROFILE AND INDICATIONS Indications: ACS <= 24 hrs Heart Failure: None Stress/Imaging Stress/Image Study Performed: No CAD Presentations: Non-STEMI. Symptom onset Date/Time: 11/05/21 Time: 4:00:00 CONCLUSIONS CAD as described with significant stenoses in 2 vessels that are too small for stent placement. Major epicardial vessels with mild stenoses RECOMMENDATIONS Medical therapy for CAD DESCRIPTION OF PROCEDURE The patient arrived to the procedure lab. The risks and benefits of the procedure as well as a full d escription of our services here and current unavailability of surgical backup were fully explained to the patient and/or their significant other prior to the catheterization. The Timeout was completed, verifying the correct patient and procedure. The patient's procedural site was prepped and draped in the usual fashion. Local anesthetic was given subcutaneously to right radial region with Lidocaine 2% . Using a modified Seldinger technique, arterial access was obtained via the right radial artery, a 6 Fr sheath was inserted. Left Coronary Artery selective angiography was performed in multiple views u sing a 5 Fr. JL4 catheter. LV to AO pullback pressures were then recorded. Right Coronary Artery bessy ctive angiography was then performed in multiple views using a 5 Fr. JR 4 catheter.The arterial sheat h was pulled and a TR Band was applied for hemostasis CORONARY ANGIOGRAPHY DOMINANCE: Right Dominant LEFT HEART ASSESSMENT LEFT MAIN: Mild luminal irregularities LEFT ANTERIOR DESCENDING ARTERY: MID LAD: 40 % Stenosis DIAGONAL 1: Proximal - 80-90 % Stenosis. Small vessel- about 1.25-1.5mm in diameter DIAGONAL 2: Ostial - 50 % Stenosis CIRCUMFLEX ARTERY: Mild luminal irregularities RIGHT CORONARY ARTERY: MID RCA: 30 % Stenosis. Small branch of the PL branch of the RCA has an 80-90% stenosis. VALVE FINDINGS: No Aortic Valve Stenosis COMPLICATIONS No Complications PROCEDURE MEDICATIONS Fentanyl 50 mcg IV Versed 1 mg IV Oxygen: 2 L/min via nasal cannula Baby Aspirin (81mg) 1 Tabs PO 10/27/2021 09:38:30 Brilinta 180 mg PO @ 10/27/2021 10:11:19 Heparin given IA 10/27/2021 10:00:07 Verapamil 2.5mg, Ntg 100mcgs, 3000 units of Heparin given IA 10/27/2021 10:00:07 SUMMARY OF HEMODYNAMIC DATA Time AIR REST ECG 09:39:14 AO 119/69 (94) SA 10:00:38 LV 131/-2, 15 10:09:11 LV 138/-3, 19 10:09:17 LVp 134/-5, 18 10:09:30 AOp 127/64 (93) 10:09:35 RM AIR REST 10:26:35 Signed By Radha Michel MD On 10/27/2021 11:35:48 AM Radha Michel MD
--- NOTE | 2021-10-27 11:58 | DCINST_ITS ---
Discharge Instructions Diet Discharge Diet: Low fat / Low cholesterol Dressing / Incision Call your doctor if your incision/area has: Continuous Slow Oozing, Sudden Increased Bleeding, Increased Pain/ Swelling, Increased Redness, Foul Smelling Discharge and Swelling at the incision site Call your doctor if you observe: Shortness of breath, Chest pain and Increased palpitations (irregular heartbeat) Follow Up Care Test Results: Test results from this visit will be discussed in further detail at your follow- up appointment, if applicable. Discharge Plan Admission Admit Date/Time: 10/26/21 09:55 Primary Reason for Your Visit: Chest Pain Attending Provider: Surinder Rahman Primary Care Provider: Bell Carrasco Consulting Providers: Yonatan Bradford ; Chandra Nicolas Instructions Patient Instructions: Cardiac Catheterization Dc Discharge Orders/Prescriptions Prescriptions: New atorvastatin 40 mg Tablet 40 mg PO QHS 30 Days Qty: 30 0RF amlodipine 10 mg Tablet 5 mg PO DAILY 30 Days Qty: 15 0RF Brilinta 90 mg Tablet 90 mg PO BID 30 Days Qty: 60 0RF ranolazine 500 mg tablet extended release 12 hr 500 mg PO BID Qty: 60 0RF aspirin 81 mg capsule 81 mg PO DAILY Qty: 30 0RF carvedilol 3.125 mg tablet 3.125 mg PO BID Qty: 60 0RF Rx Instructions: must administer with a meal/food losartan 25 mg tablet 25 mg PO DAILY Qty: 30 0RF nitroglycerin 0.4 mg tablet, sublingual 0.4 mg sublingual Q5M PRN (Reason: chest pain) Qty: 10 0RF Rx Instructions: do not exceed 2 doses per episode Continued estradiol [Estrace] 0.5 MG tablet 1 mg PO DAILY pseudoephedrine HCl [Sudogest] 60 MG tablet 60 mg PO Q6H PRN PRN (Reason: Congestion) cholecalciferol (vitamin D3) [Vitamin D3] 2,000 UNIT capsule 2,000 unit PO DAILY albuterol sulfate [ProAir HFA] 1 PUFF inhaler 1 - 2 puff inhalation Q4H PRN PRN (Reason: Asthma) fexofenadine [Leonor Allergy] 180 MG tablet 180 mg PO DAILY bupropion HCl 300 mg tablet extended release 24 hr 75 mg PO DAILY Label Comments: Take 1 tablet by mouth once daily. Antivert 50 mg tablet 50 mg PO BID PRN (Reason: dizziness) Qty: 10 0RF esomeprazole magnesium [Nexium] 20 mg Capsule,Delayed Release(Dr/Ec) 0 mg PO DAILY escitalopram oxalate 5 mg tablet 5 mg PO DAILY Label Comments: TAKE 1 TABLET BY MOUTH DAILY Discontinued amlodipine [Norvasc] 10 MG tablet 10 mg PO DAILY Referrals / Follow Up: Bell Carrasco MD [Primary Care Provider] - Nahum Kaur MD [STAFF PHYSICIAN] - Within 2 Weeks Disposition Disposition (needs filled in before D/C Order can be placed): Home, Self Care
--- NOTE | 2021-10-27 12:09 | PCM.DC.SUM ---
Documented by User: MALISSA Baires 10/27/21 12:24 Providers Date of Admission: 10/26/21 Date of Discharge: 10/27/21 Primary Care Physician: Dr. Bell Carrasco MD Consultations 10/26/21 11:33 Consult: Cardiology Routine Consulting Provider: Yonatan Bradford Reason for Consult: NSETMI EMERGENT Consult: No MD Notified: Yes Date Notified: 10/26/21 Time Notified: 10:00 Method of Notification: ED Physician Initiated Reason For Visit: NSTEMI Diagnosis Discharge Diagnosis (1) Chest pain: Status: Acute Code(s): R07.9 - Chest pain, unspecified (2) Hypertension: Status: Chronic Code(s): I10 - Essential (primary) hypertension (3) ACS (acute coronary syndrome): Status: Acute Code(s): I24.9 - Acute ischemic heart disease, unspecified (4) Non-ST elevation FL (NSTEMI): Status: Acute Code(s): I21.4 - Non-ST elevation (NSTEMI) myocardial infarction Medications at Discharge Home Medications estradiol 0.5 mg tablet (Estrace) 1 mg PO DAILY HRT 08/23/14 pseudoephedrine HCl 60 mg tablet (Sudogest) 60 mg PO Q6H PRN PRN Congestion 08/23/14 albuterol sulfate 90 mcg/actuation aerosol inhaler (ProAir HFA) 1 - 2 puff inhalation Q4H PRN PRN Asthma 10/01/17 cholecalciferol (vitamin D3) 50 mcg (2,000 unit) capsule (Vitamin D3) 2,000 unit PO DAILY SUPPLEMENT 10/01/17 fexofenadine 180 mg tablet (Leonor Allergy) 180 mg PO DAILY ALLERGIES 12/24/17 bupropion HCl 300 mg 24 hr tablet, extended release 75 mg PO DAILY 01/29/21 meclizine 50 mg tablet (Antivert) 50 mg PO BID PRN dizziness #10 tabs 01/29/21 escitalopram oxalate 5 mg tablet 5 mg PO DAILY 10/26/21 esomeprazole magnesium 20 mg capsule,delayed release (Nexium) 0 mg PO DAILY 10/26/21 amlodipine 10 mg tablet 5 mg PO DAILY 30 days #15 tabs 10/27/21 aspirin 81 mg capsule 81 mg PO DAILY #30 caps 10/27/21 atorvastatin 40 mg tablet 40 mg PO QHS 30 days #30 tabs 10/27/21 carvedilol 3.125 mg tablet 3.125 mg PO BID #60 tabs 10/27/21 losartan 25 mg tablet 25 mg PO DAILY #30 tabs 10/27/21 nitroglycerin 0.4 mg sublingual tablet 0.4 mg sublingual Q5M PRN chest pain #10 tabs 10/27/21 ranolazine 500 mg tablet,extended release,12 hr 500 mg PO BID #60 tabs 10/27/21 ticagrelor 90 mg tablet (Brilinta) 90 mg PO BID 30 days #60 tabs 10/27/21 Hospital Course Operations None Procedures 2-D Echocardiogram and Cardiac catheterization Summary of Care Provided Minutes Spent on Discharge: 35 Hospital Course: Patient is a 71-year-old female who presented with chest pain. Patient was placed on a heparin drip and admitted to PCU although after evaluated by Dr. Bradford she was transferred to ICU as patient was still having chest pain. Patient had been given a dose of nitro in the ER however dropped her systolic blood pressure significantly. Patient underwent cardiac catheterization on 10/27/2021 which did demonstrate stenosis however vessels were too small to stent and so patient will go home with medical management and instruction to follow-up with cardiology. Patient will be continued on atorvastatin and amlodipine. Patient will be initiated on carvedilol, losartan, aspirin, Ranexa, Brilinta and given as needed nitroglycerin tabs if she has chest pain at home. Physical Exam Const alert, oriented x3 and no apparent distress HEENT normocephalic and head/scalp atraumatic Eyes conjunctivae normal and no scleral icterus Neck supple General: trachea midline Resp normal respiratory effort, normal air movement and clear to auscultation bilaterally Cardio regular rate, regular rhythm, S1 normal heart sound, S2 normal heart sound and peripheral pulses 2+ throughout GI normal to inspection, nondistended, normoactive bowel sounds, soft to palpation and non-tender Extremity normal capillary refill and no clubbing, cyanosis or edema Skin skin turgor normal General Skin Exam: no breakdown Lesions: no lesions Rashes: no rashes Neuro oriented x3, moves all extremities, no focal motor deficits and no sensory deficits noted Psych affect normal Weight / BMI Weight Weight: 204 lb 9.423 oz Body Mass Index (BMI) 34.0 ABG / Lab / Microbiology Data Result Diagrams: 10/27/21 06:02 10/27/21 06:02 Laboratory: Laboratory Results - last 24 hr 10/26/21 11:40: Troponin I High Sens 715 H* 10/26/21 14:19: Troponin I High Sens 1560 H* 10/26/21 15:35: APTT 101.7 H* 10/26/21 23:13: APTT 37.7 H 10/27/21 06:02: WBC 8.1, RBC 3.99 L, Hgb 12.2, Hct 37.8, MCV 94.7, MCH 30.6, MCHC 32.3, RDW Std Deviation 52.1 H, RDW Coeff of Johann 15.0 H, Plt Count 293, MPV 9.5, Immature Gran % (Auto) 0.400, Neut % (Auto) 44.0 L, Lymph % (Auto) 45.2 H, [place] % (Auto) 7.9, Eos % (Auto) 1.9, Baso % (Auto) 0.6, Absolute Neuts (auto) 3.6, Absolute Lymphs (auto) 3.64, Nucleated RBC % 0 10/27/21 06:02: Sodium 137, Potassium 3.6, Chloride 102, Carbon Dioxide 27.0, Anion Gap 8, BUN 10, Creatinine 0.54 L, Estim Creat Clear Calc 48.30, Est GFR (MDRD) Af Amer 143, Est GFR (MDRD) Non-Af 119, BUN/Creatinine Ratio 18.6, Glucose 119 H, Calcium 8.5 10/27/21 06:02: APTT 52.5 H D/C Instructions Discharge Diet: Low fat / Low cholesterol Call your doctor if your incision/area has: Continuous Slow Oozing, Sudden Increased Bleeding, Increased Pain/ Swelling, Increased Redness, Foul Smelling Discharge and Swelling at the incision site Call your doctor if you observe: Shortness of breath, Chest pain and Increased palpitations (irregular heartbeat) Meaningful Use Info Meaningful Use Diagnoses (Choose all that apply): AMI AMI/Post PCI/Angioplasty Aspirin given w/in 24hrs of arrival?: Yes ASA at discharge?: Yes Antiplatelet Therapy at Discharge:: Yes Statins at discharge?: Yes Alejo/ARB at discharge?: Yes Beta Laila at discharge?: Yes Done w/ Acute FL measure.: Yes Discharge Plan Admission Admit Date/Time: 10/26/21 09:55 Primary Reason for Your Visit: Chest Pain Attending Provider: Surinder Rahman Primary Care Provider: Bell Carrasco Consulting Providers: Yonatan Bradford ; Chandra Nicolas Instructions Forms: Work / School Excuse Patient Instructions: Cardiac Catheterization Dc Discharge Orders/Prescriptions Prescriptions: New atorvastatin 40 mg Tablet 40 mg PO QHS 30 Days Qty: 30 0RF amlodipine 10 mg Tablet 5 mg PO DAILY 30 Days Qty: 15 0RF Brilinta 90 mg Tablet 90 mg PO BID 30 Days Qty: 60 0RF ranolazine 500 mg tablet extended release 12 hr 500 mg PO BID Qty: 60 0RF aspirin 81 mg capsule 81 mg PO DAILY Qty: 30 0RF carvedilol 3.125 mg tablet 3.125 mg PO BID Qty: 60 0RF Rx Instructions: must administer with a meal/food losartan 25 mg tablet 25 mg PO DAILY Qty: 30 0RF nitroglycerin 0.4 mg tablet, sublingual 0.4 mg sublingual Q5M PRN (Reason: chest pain) Qty: 10 0RF Rx Instructions: do not exceed 2 doses per episode Continued estradiol [Estrace] 0.5 MG tablet 1 mg PO DAILY pseudoephedrine HCl [Sudogest] 60 MG tablet 60 mg PO Q6H PRN PRN (Reason: Congestion) cholecalciferol (vitamin D3) [Vitamin D3] 2,000 UNIT capsule 2,000 unit PO DAILY albuterol sulfate [ProAir HFA] 1 PUFF inhaler 1 - 2 puff inhalation Q4H PRN PRN (Reason: Asthma) fexofenadine [Leonor Allergy] 180 MG tablet 180 mg PO DAILY bupropion HCl 300 mg tablet extended release 24 hr 75 mg PO DAILY Label Comments: Take 1 tablet by mouth once daily. Antivert 50 mg tablet 50 mg PO BID PRN (Reason: dizziness) Qty: 10 0RF esomeprazole magnesium [Nexium] 20 mg Capsule,Delayed Release(Dr/Ec) 0 mg PO DAILY escitalopram oxalate 5 mg tablet 5 mg PO DAILY Label Comments: TAKE 1 TABLET BY MOUTH DAILY Discontinued amlodipine [Norvasc] 10 MG tablet 10 mg PO DAILY Referrals / Follow Up: Bell Carrasco MD [Primary Care Provider] - (11/10/21 10:00) Nahum Kaur MD [STAFF PHYSICIAN] - Within 2 Weeks (11/13/21 11:00 ) Disposition Disposition (needs filled in before D/C Order can be placed): Home, Self Care Documented by User: Dr. Surinder Rahman DO 10/29/21 08:52 Providers Date of Admission: 10/26/21 Reason For Visit: NSTEMI Diagnosis Discharge Diagnosis (1) Chest pain: Status: Acute Code(s): R07.9 - Chest pain, unspecified (2) Hypertension: Status: Chronic Code(s): I10 - Essential (primary) hypertension (3) ACS (acute coronary syndrome): Status: Acute Code(s): I24.9 - Acute ischemic heart disease, unspecified (4) Non-ST elevation FL (NSTEMI): Status: Acute Code(s): I21.4 - Non-ST elevation (NSTEMI) myocardial infarction Medications at Discharge Home Medications estradiol 0.5 mg tablet (Estrace) 1 mg PO DAILY HRT 08/23/14 pseudoephedrine HCl 60 mg tablet (Sudogest) 60 mg PO Q6H PRN PRN Congestion 08/23/14 albuterol sulfate 90 mcg/actuation aerosol inhaler (ProAir HFA) 1 - 2 puff inhalation Q4H PRN PRN Asthma 10/01/17 cholecalciferol (vitamin D3) 50 mcg (2,000 unit) capsule (Vitamin D3) 2,000 unit PO DAILY SUPPLEMENT 10/01/17 fexofenadine 180 mg tablet (Leonor Allergy) 180 mg PO DAILY ALLERGIES 12/24/17 bupropion HCl 300 mg 24 hr tablet, extended release 75 mg PO DAILY 01/29/21 meclizine 50 mg tablet (Antivert) 50 mg PO BID PRN dizziness #10 tabs 01/29/21 escitalopram oxalate 5 mg tablet 5 mg PO DAILY 10/26/21 esomeprazole magnesium 20 mg capsule,delayed release (Nexium) 0 mg PO DAILY 10/26/21 amlodipine 10 mg tablet 5 mg PO DAILY 30 days #15 tabs 10/27/21 aspirin 81 mg capsule 81 mg PO DAILY #30 caps 10/27/21 atorvastatin 40 mg tablet 40 mg PO QHS 30 days #30 tabs 10/27/21 carvedilol 3.125 mg tablet 3.125 mg PO BID #60 tabs 10/27/21 losartan 25 mg tablet 25 mg PO DAILY #30 tabs 10/27/21 nitroglycerin 0.4 mg sublingual tablet 0.4 mg sublingual Q5M PRN chest pain #10 tabs 10/27/21 ranolazine 500 mg tablet,extended release,12 hr 500 mg PO BID #60 tabs 10/27/21 ticagrelor 90 mg tablet (Brilinta) 90 mg PO BID 30 days #60 tabs 10/27/21 ABG / Lab / Microbiology Data Result Diagrams: 10/27/21 06:02 10/27/21 06:02 Discharge Plan Admission Admit Date/Time: 10/26/21 09:55 Primary Reason for Your Visit: Chest Pain Attending Provider: Surinder Rahman Primary Care Provider: Bell Carrasco Consulting Providers: Yonatan Bradford ; Chandra Nicolas Instructions Forms: Work / School Excuse Patient Instructions: Cardiac Catheterization Dc Discharge Orders/Prescriptions Prescriptions: New atorvastatin 40 mg Tablet 40 mg PO QHS 30 Days Qty: 30 0RF amlodipine 10 mg Tablet 5 mg PO DAILY 30 Days Qty: 15 0RF Brilinta 90 mg Tablet 90 mg PO BID 30 Days Qty: 60 0RF ranolazine 500 mg tablet extended release 12 hr 500 mg PO BID Qty: 60 0RF aspirin 81 mg capsule 81 mg PO DAILY Qty: 30 0RF carvedilol 3.125 mg tablet 3.125 mg PO BID Qty: 60 0RF Rx Instructions: must administer with a meal/food losartan 25 mg tablet 25 mg PO DAILY Qty: 30 0RF nitroglycerin 0.4 mg tablet, sublingual 0.4 mg sublingual Q5M PRN (Reason: chest pain) Qty: 10 0RF Rx Instructions: do not exceed 2 doses per episode Continued estradiol [Estrace] 0.5 MG tablet 1 mg PO DAILY pseudoephedrine HCl [Sudogest] 60 MG tablet 60 mg PO Q6H PRN PRN (Reason: Congestion) cholecalciferol (vitamin D3) [Vitamin D3] 2,000 UNIT capsule 2,000 unit PO DAILY albuterol sulfate [ProAir HFA] 1 PUFF inhaler 1 - 2 puff inhalation Q4H PRN PRN (Reason: Asthma) fexofenadine [Leonor Allergy] 180 MG tablet 180 mg PO DAILY bupropion HCl 300 mg tablet extended release 24 hr 75 mg PO DAILY Label Comments: Take 1 tablet by mouth once daily. Antivert 50 mg tablet 50 mg PO BID PRN (Reason: dizziness) Qty: 10 0RF esomeprazole magnesium [Nexium] 20 mg Capsule,Delayed Release(Dr/Ec) 0 mg PO DAILY escitalopram oxalate 5 mg tablet 5 mg PO DAILY Label Comments: TAKE 1 TABLET BY MOUTH DAILY Discontinued amlodipine [Norvasc] 10 MG tablet 10 mg PO DAILY Referrals / Follow Up: Bell Carrasco MD [Primary Care Provider] - (11/10/21 10:00) Nahum Kaur MD [STAFF PHYSICIAN] - Within 2 Weeks (11/13/21 11:00 ) Disposition Disposition (needs filled in before D/C Order can be placed): Home, Self Care Charges/Coding Addendum Addendum: Patient was seen and examined today independently of Fernanda Leo, she underwent a cardiac catheterization today which showed occlusive coronary disease in 2 small branches of a coronary artery, these were not able to be stented due to the diameter of the arteries. I talked with cardiology today about discharge planning, Dr. Michel confirmed that the patient could be discharged this afternoon after echocardiogram was performed. Patient agreed with this discharge planning. On examination she appeared in good health and spirits, she does not appear to be in any distress. Vital signs as documented. Skin warm and dry and without overt rashes. Neck without JVD, thyroid appears normal, trachea is midline, neck is supple. Lungs clear, normal air movement was noted. Heart exam notable for regular rhythm, normal sounds and absence of murmurs, rubs or gallops. Abdomen unremarkable and without evidence of organomegaly, masses, or abdominal aortic enlargement, bowel sounds are present in all 4 quadrants, no abdominal tenderness was noted. Extremities nonedematous, no cyanosis was noted, no clubbing was noted. Neuro: Cranial nerves II through XII are grossly intact, no focal motor deficits were noted, sensation to light touch and pinprick is intact, motor exam 5/5 throughout. Psych: Patient is alert and oriented x3, she does not appear anxious or depressed, she does not appear agitated. Impression: #1 non-STEMI #2 acute coronary syndrome #3 essential hypertension #4 chronic anxiety/depression #5 hyperlipidemia #6 occlusive coronary artery disease small branch of the right coronary artery, small vessel occlusive coronary disease in diagonal branch of left anterior descending artery #7 nonocclusive coronary artery disease circumflex artery, left anterior descending artery I have reviewed Fernanda Leo's discharge summary including her medical assessment and plan of care and with the above additions endorse. Total clinical time spent by myself addressing patient's medical issues, reviewing the data, and collaborating with patient's care team: 36-minute Visit Charges Inpatient E&M: [id number] Disch Hosp
[2021-10-27] MEDS: Escitalopram Oxalate 10 MG Tablet 5 MG PO (12:53)
--- NOTE | 2021-10-27 13:30 | CASEMGMT ---
RN SHAGUFTA Face to Face with patient for initial transition planning/care coordination assessment. RN CM introduced self and role at [facility]. Patient lying in bed, alert and oriented. Patient willing to participate in assessment and is able to answer all questions appropriately. Care providers, pharmacy, and demographics verified. Patient wishes to discharge home, denies need for home health at this time. Patient states she has no further needs or concerns at this time. CM to follow for discharge planning needs that may arise. PCP: [facility] Specialists: none Preferred Pharmacy: [facility] Insurance: [employer] Medicare Prescription Benefit: yes, [employer] savings card provided to patient. Living Will/HPOA: none LNOK: son Living Arrangements: Patient lives alone in a 2 story apt. Patient states she is independent and able to ambulate the stairs. Transportation: self, son DME/HHC: Patient states she has glucometer at home with supplies. No previous HHC or SNF. Disposition Plan: Patient to discharge home with family support and follow-up plans in place. Zunilda WARD, RN, CM
== END 2021-10-27 18:27 | disposition home or self-care (01) | DRG 282 ==
LOC: ED 09:25 → PCU 10:13 → ICU 14:29
PROVIDERS: Hospitalist; Internal Medicine Interventional Cardiology; Nurse Practitioner Family; Admitting Provider Family Medicine; Emergency Provider Emergency Medicine; PCP Internal Medicine; Visit Provider Internal Medicine
DX: I21.4 Non-ST elevation (NSTEMI) myocardial infarction (principal); I95.9 Hypotension, unspecified; I25.10 Atherosclerotic heart disease of native coronary artery without angina pectoris; I10 Essential (primary) hypertension; E78.5 Hyperlipidemia, unspecified; K21.9 Gastro-esophageal reflux disease without esophagitis; F32.A Depression, unspecified; F41.9 Anxiety disorder, unspecified; Z79.82 Long term (current) use of aspirin; Z79.02 Long term (current) use of antithrombotics/antiplatelets; Z79.899 Other long term (current) drug therapy
CPT/HCPCS: 36415; 71045; 80048; 80076; 83690; 84484; 85025; 85610; 85730; 93005; 93306; 93454; 99152; 99153; 99285; J7030; A4216; C1769; C1894; J2405; Q9967